=== PATIENT | female | born 1975 | race Caucasian/White ===

== ENCOUNTER 2017-10-20 11:46 | Inpatient (IN) | payer MEDICAID, SELFPAY ==
[2017-10-20] VITALS (9 sets, daily range): BP systolic 94–118; BP diastolic 56–84; PULSE 80–109; RESP 14–16; TEMP 36.4–37; O2SAT 96–100; BMI 19.0
--- NOTE | 2017-10-20 12:03 | CT_ITS ---
STUDY: CT PELVIS WITHOUT CONTRAST REASON FOR EXAM: Female, 42 years old. Septic wound overlying the right hip. RADIATION DOSAGE (If Supplied By Facility): CTDIvol = ( 18.05 ) mGy, DLP = ( 469.79 ) mGycm TECHNIQUE: Transaxial imaging of the pelvis was performed with oral contrast, and without intravenous administration of contrast material. Multiplanar coronal and sagittal images were reformatted. Individualized dose optimization techniques were used for this CT. COMPARISON: None. FINDINGS: There is a 4.3 cm x 1.5 cm soft tissue density overlying the greater trochanter of the proximal right femur. This extends to the cutaneous surface where there appears to be an ulceration. Lymph nodes are seen in the right inguinal region the largest measuring 1.2 cm. Normal urinary bladder. Bilateral tubal ligation. Residual food products are seen within the distal portion of the stomach. Normal visualized small intestine. Normal visualized colon. There is no pelvic fluid. There is no pelvic mass lesion or lymphadenopathy. There is diffuse atherosclerotic calcification of the pelvic arteries. Normal abdominal wall. Normal osseous structures. CT/Pelvis without IV Contrast IMPRESSION: 4.3 cm x 1.5 cm soft tissue density overlying the greater trochanter to proximal right femur with overlying cutaneous ulceration. Right inguinal lymph nodes. Electronically Signed: Jason Oquendo MD at 12:58 EDT Tel [phone], Service support ,
[2017-10-20 12:37] LABS: Absolute Lymphocyte Count 1.97 X10^3/ul (0.83-4.51); Absolute Neutrophil Count 3.3 X10^3/uL (2.0-7.7); Basophil# 0.01 X10^3/uL; Basophil% 0.2 % (0-1); Hematocrit 40.1 % (37-47); Hemoglobin 13.5 g/dl (12.0-15.0); Lymphocyte # 1.97 X10^3/ul (4.0); Lymphocyte % 34.9 % (19-41); Mean Corp Hgb Conc 33.7 g/gl (32-36); Mean Corpuscular Hgb 29.9 pg (27.0-32.0); Mean Corpuscular Volume 88.9 fL (81-99); Mean Platelet Vol. 11.4 fl (6.2-12.0); Monocyte# 0.38 X10^3/uL; Monocyte% 6.7 % (0-10); Neutrophil # 3.27 X10^3/uL (2.7-7.7); Platelet Count 170 K/mm3 (150-450); RBC Distribution Width CV 13.6 % (11.6-14.6); Red Blood Count 4.51 M/mm3 (4.2-5.4); White Blood Count 5.6 K/mm3 (4.4-11.0)
[2017-10-20 12:38] LABS: POSITIVE COUNT NO; POSITIVE DIFFERENTIAL NO; POSITIVE MORPHOLOGY NO
[2017-10-20 12:46] LABS: Anion Gap 7 (5-15); BUN 7 mg/dL (7-18); BUN/Creat Ratio 8.6 RATIO (10-20); Calcium,Total 8.7 mg/dL (8.5-10.1); Chloride 108 mmol/L (98-107); Creatinine, Serum 0.82 mg/dL (0.55-1.02); EST Glomerular Filtration Rate 82 mL/min (>60); Est Glom Filt Rate - Afr Amer 99 mL/min (>60); Estimated Creatinine Clearance 68.71 ml/min; Glucose 92 mg/dL (74-106); Potassium 4.5 mmol/L (3.5-5.1); Sodium Level 141 mmol/L (136-145)
--- NOTE | 2017-10-20 13:48 | DT_ITS ---
This patient was seen during an EMR downtime October 25, 2017 - November 01, 2017. This patient may have a combination of paper and electronic documentation or all paper documentation. All documentation is viewable within the e-chart portion of [facility] for each patient visit.
--- NOTE | 2017-10-20 13:55 | PCM.HP.STD ---
History of Present Illness Date of Admission: 10/20/17 Chief Complaint: Right hip wound. The patient is a 42 year old F presented to the emergency room because of right hip wound that she had since April,. According to the patient, she went to see her PCP a week ago and her PCP advised her to come to the emergency department for evaluation but she did not and waited until today to come to be evaluated. She complains of mild dull aching pain, intermittent at the right hip region that has been going on for a few weeks, 2-3 out of 10 in severity, not radiating, associated with subjective fever according to the patient and without aggravating or relieving factors. She does have a drainage coming out from her wound and it has a smell as well. Reportedly, patient has been nonambulatory and laying in her bed most of her time and she attributed that because she has chronic dizziness and lightheadedness. It is unclear if she has any chronic debilitating disease. In the emergency department, her vital signs were stable. Her routine blood work was unremarkable. CT scan pelvis without contrast revealed 4.3 cm x 1.5 cm soft tissue density overlying the greater trochanter to the proximal right femur. She is being admitted for infected right hip stage II decubitus ulcer and suspected underlying abscess. Past Medical History Allergies Penicillins Allergy (Verified 10/20/17 11:49) Unknown aspirin Adverse Reaction (Verified 10/20/17 11:49) Upset Stomach Home Medications: Ambulatory Orders Medication Instructions Recorded NK [NK] 05/23/17 Surgical History: - - section. 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 Dyspnea, Syncope Respiratory: Denies: Cough, Hemoptysis, Pleuritic Pain, Shortness of Breath, Sputum production, Wheezing Gastrointestinal: Denies: Abdominal Pain, Constipation, Diarrhea, Nausea, Vomiting Genitourinary: Denies: Dysuria, Frequency, Hematuria Musculoskeletal: Denies: Arm Pain, Back Pain, Foot Pain Skin: Denies: Dryness, Rash Neurological: Denies: Balance problems, Double vision, Change in Speech, Focal weakness, Headaches, Incoordination Psychiatric: Denies: Anxiety, Depression Endocrine: Denies: Change in Body Habitus, Polydipsia VTE Information - Inpt Only VTE Present on Admission: No VTE Mechan Device Prophylaxis: None VTE Pharm Prophylaxis ordered?: Yes - Physical Exam General: Alert, Oriented x3, Cooperative HEENT: EOMI Oral: Moist Mucosa, No Gingival or Mucosal Lesions/ Ulcerations Neck: Supple, No JVD, Negative Carotid Bruits, Trachea Midline, Thyroid Normal Size and Texture Lungs: Clear to auscultation, Normal air movement, No rhonchi, No wheeze, No rales Cardiovascular: Regular rate, Regular Rhythm, Normal S1, Normal S2, No murmurs Abdomen: Bowel Sounds Present, Soft, Non Tender, Non-Distended, No Hepato-splenomegaly Extremities: No clubbing, No cyanosis, No edema Skin: No rashes, Ulcer/ Wound, - - Right hip: Stage II decubitus ulcer measuring about 3 x 3 cm with drainage and minimal pus. Lymphatic: No Cervical, Supraclavicular, or Inguinal Adenopathy Neurological: Cranial nerves II-XII grossly intact, Neuro grossly intact Psych/Mental Status: Normal Affect, Appropriate, Alert and oriented to time, place, person, mood and affect Vital Signs Temp Pulse Resp BP Pulse Ox 98.6 F 109 H 16 118/84 H 98 10/20/17 11:47 10/20/17 11:47 10/20/17 11:47 10/20/17 11:47 10/20/17 11:47 Oxygen Delivery Method Room Air Weight: 107 lb 5.842 oz Body Mass Index (BMI) 19.0 Finger Stick Blood Glucose 144 Laboratory Tests Past 24 Hrs 10/20/17 10/20/17 10/20/17 12:24 12:24 13:31 WBC 5.6 RBC 4.51 Hgb 13.5 Hct 40.1 MCV 88.9 MCH 29.9 MCHC 33.7 RDW 13.6 RDW Differential 44.0 H Plt Count 170 MPV 11.4 Immature Gran % (Auto) 0.200 Neut % (Auto) 58.0 Lymph % (Auto) 34.9 [place] % (Auto) 6.7 Eos % (Auto) 0.0 Baso % (Auto) 0.2 Absolute Neuts (auto) 3.3 Absolute Lymphs (auto) 1.97 Total Counted Not Reportable Sodium 141 Potassium 4.5 Chloride 108 H Carbon Dioxide 26.0 Anion Gap 7 BUN 7 Creatinine 0.82 Estim Creat Clear Calc 68.71 Est GFR (MDRD) Af Amer 99 Est GFR (MDRD) Non-Af 82 BUN/Creatinine Ratio 8.6 L Glucose 92 Calcium 8.7 S.aureus Protein A PCR Pending MRSA (PCR) Pending Clinical Impression(s) from Imaging Studies Pelvis CT 10/20/17 12:03 IMPRESSION: 4.3 cm x 1.5 cm soft tissue density overlying the greater trochanter to proximal right femur with overlying cutaneous ulceration. Right inguinal lymph nodes. Electronically Signed: Jason Oquendo MD at 12:58 EDT Tel [phone], Service support , Assessment/Plan This is a 42 years old female patient presented to the emergency room because of right hip wound check that look infected and CT scan pelvis revealed probable overlying abscess. #1 right hip stage II decubitus ulcer/suspected underlying abscess: She has open ulcer on the lateral aspect of the posterior hip measuring about 3 x 3 cm with drainage and minimal pus and surrounding erythema. Vital signs are stable, afebrile. CT scan pelvis reviewed. Blood and wound culture sent, received 1 dose of IV Levaquin. Plan: Admit to MedSurg floor, start IV vancomycin, MRSA screen, C-reactive protein, ESR, plastic surgery consult, IV fluids, Tylenol as needed, Zofran as needed, PT OT evaluation and treatment. #2 physical debility: Patient is nonambulatory most of her time, stated that she can do basic stuff sometimes. It is not clear why she is not fully ambulatory although she is still young. She mentioned that she has chronic dizziness. Plan for PT OT evaluation and treatment. 3 DVT prophylaxis: Subcu Lovenox. This note was generated with J[employer] software. It may contain incorrect words, spelling, and punctuation that were not noted in checking the note before signing. Code Visit Inpatient E&M: 77710 Init Hosp L3
--- NOTE | 2017-10-20 13:58 | HP.PCM_ITS ---
History of Present Illness Date of Admission: 10/20/17 Chief Complaint: Right hip wound. The patient is a 42 year old F presented to the emergency room because of right hip wound that she had since April,. According to the patient, she went to see her PCP a week ago and her PCP advised her to come to the emergency department for evaluation but she did not and waited until today to come to be evaluated. She complains of mild dull aching pain, intermittent at the right hip region that has been going on for a few weeks, 2-3 out of 10 in severity, not radiating, associated with subjective fever according to the patient and without aggravating or relieving factors. She does have a drainage coming out from her wound and it has a smell as well. Reportedly, patient has been nonambulatory and laying in her bed most of her time and she attributed that because she has chronic dizziness and lightheadedness. It is unclear if she has any chronic debilitating disease. In the emergency department, her vital signs were stable. Her routine blood work was unremarkable. CT scan pelvis without contrast revealed 4.3 cm x 1.5 cm soft tissue density overlying the greater trochanter to the proximal right femur. She is being admitted for infected right hip stage II decubitus ulcer and suspected underlying abscess. Past Medical History Allergies Penicillins Allergy (Verified 10/20/17 11:49) Unknown aspirin Adverse Reaction (Verified 10/20/17 11:49) Upset Stomach Home Medications: Ambulatory Orders Medication Instructions Recorded NK [NK] 05/23/17 Surgical History: - - section. 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 Dyspnea, Syncope Respiratory: Denies: Cough, Hemoptysis, Pleuritic Pain, Shortness of Breath, Sputum production, Wheezing Gastrointestinal: Denies: Abdominal Pain, Constipation, Diarrhea, Nausea, Vomiting Genitourinary: Denies: Dysuria, Frequency, Hematuria Musculoskeletal: Denies: Arm Pain, Back Pain, Foot Pain Skin: Denies: Dryness, Rash Neurological: Denies: Balance problems, Double vision, Change in Speech, Focal weakness, Headaches, Incoordination Psychiatric: Denies: Anxiety, Depression Endocrine: Denies: Change in Body Habitus, Polydipsia VTE Information - Inpt Only VTE Present on Admission: No VTE Mechan Device Prophylaxis: None VTE Pharm Prophylaxis ordered?: Yes - Physical Exam General: Alert, Oriented x3, Cooperative HEENT: EOMI Oral: Moist Mucosa, No Gingival or Mucosal Lesions/ Ulcerations Neck: Supple, No JVD, Negative Carotid Bruits, Trachea Midline, Thyroid Normal Size and Texture Lungs: Clear to auscultation, Normal air movement, No rhonchi, No wheeze, No rales Cardiovascular: Regular rate, Regular Rhythm, Normal S1, Normal S2, No murmurs Abdomen: Bowel Sounds Present, Soft, Non Tender, Non-Distended, No Hepato- splenomegaly Extremities: No clubbing, No cyanosis, No edema Skin: No rashes, Ulcer/ Wound, - - Right hip: Stage II decubitus ulcer measuring about 3 x 3 cm with drainage and minimal pus. Lymphatic: No Cervical, Supraclavicular, or Inguinal Adenopathy Neurological: Cranial nerves II-XII grossly intact, Neuro grossly intact Psych/Mental Status: Normal Affect, Appropriate, Alert and oriented to time, place, person, mood and affect Vital Signs Temp Pulse Resp BP Pulse Ox 98.6 F 109 H 16 118/84 H 98 10/20/17 11:47 10/20/17 11:47 10/20/17 11:47 10/20/17 11:47 10/20/17 11:47 Oxygen Delivery Method Room Air Weight: 107 lb 5.842 oz Body Mass Index (BMI) 19.0 Finger Stick Blood Glucose 144 Laboratory Tests Past 24 Hrs 10/20/17 10/20/17 10/20/17 12:24 12:24 13:31 WBC 5.6 RBC 4.51 Hgb 13.5 Hct 40.1 MCV 88.9 MCH 29.9 MCHC 33.7 RDW 13.6 RDW Differential 44.0 H Plt Count 170 MPV 11.4 Immature Gran % (Auto) 0.200 Neut % (Auto) 58.0 Lymph % (Auto) 34.9 [place] % (Auto) 6.7 Eos % (Auto) 0.0 Baso % (Auto) 0.2 Absolute Neuts (auto) 3.3 Absolute Lymphs (auto) 1.97 Total Counted Not Reportable Sodium 141 Potassium 4.5 Chloride 108 H Carbon Dioxide 26.0 Anion Gap 7 BUN 7 Creatinine 0.82 Estim Creat Clear Calc 68.71 Est GFR (MDRD) Af Amer 99 Est GFR (MDRD) Non-Af 82 BUN/Creatinine Ratio 8.6 L Glucose 92 Calcium 8.7 S.aureus Protein A PCR Pending MRSA (PCR) Pending Clinical Impression(s) from Imaging Studies Pelvis CT 10/20/17 12:03 IMPRESSION: 4.3 cm x 1.5 cm soft tissue density overlying the greater trochanter to proximal right femur with overlying cutaneous ulceration. Right inguinal lymph nodes. Electronically Signed: Jason Oquendo MD at 12:58 EDT Tel [phone], Service support , Assessment/Plan This is a 42 years old female patient presented to the emergency room because of right hip wound check that look infected and CT scan pelvis revealed probable overlying abscess. #1 right hip stage II decubitus ulcer/suspected underlying abscess: She has open ulcer on the lateral aspect of the posterior hip measuring about 3 x 3 cm with drainage and minimal pus and surrounding erythema. Vital signs are stable , afebrile. CT scan pelvis reviewed. Blood and wound culture sent, received 1 dose of IV Levaquin. Plan: Admit to MedSurg floor, start IV vancomycin, MRSA screen, C-reactive protein, ESR, plastic surgery consult, IV fluids, Tylenol as needed, Zofran as needed, PT OT evaluation and treatment. #2 physical debility: Patient is nonambulatory most of her time, stated that she can do basic stuff sometimes. It is not clear why she is not fully ambulatory although she is still young. She mentioned that she has chronic dizziness. Plan for PT OT evaluation and treatment. 3 DVT prophylaxis: Subcu Lovenox. This note was generated with [email or web address] software. It may contain incorrect words, spelling, and punctuation that were not noted in checking the note before signing. Code Visit Inpatient E&M: 05612 Init Hosp L3
[2017-10-20 14:02] LABS: M R Staph aureus DNA By PCR Negative (Negative); Probe Check PASS; Specimen Processing Control PASS; Staph aureus DNA By PCR POSITIVE (Negative)
[2017-10-20] MEDS: levoFLOXacin IV 750 MG/150 ML BAG 100 MG IV (14:02)
--- NOTE | 2017-10-20 14:17 | ED.VISSUMM ---
- ER Visit Summary Date of Service: 10/20/17 Chief Complaint: [Wound check right hip] History of Present Illness: The patient is a 42 F [presents to the emergency department with complaint of a wound to the right hip that she has had for the last 6 months. Patient states that she was admitted to a shelter in July and since that time patient has had a wound VAC to the right hip. Patient was seen by her primary care physician a week ago there was concern about infection to the right hip wound which is believed from pressure type ulceration from patient laying on it. Patient was advised to come to the emergency department a week ago but patient did not want to come in until finally today she decided she wanted to have it evaluated again. Patient denies any fever. Patient does have drainage from it and follow odor.] Physical Examination: [HEDION-PERRLASAUL. Cranial nerves II through XII grossly intact. TMs clear. Mucous membranes moist. No adenopathy. Cardiovascular-regular rate and rhythm without murmur or ectopy Lungs-clear to auscultation, chest wall stable without crepitus or subcu emphysema Abdomen-normoactive bowel sounds, soft, nontender, no rebound or rigidity, no peritoneal signs. Extremities-intact ?4, normal range of motion, normal pulses, atraumatic]. Right hip-patient does have a ulcerated lesion measuring approximately 4 cm in diameter over the right greater trochanter of the hip with surrounding erythema and edema. Patient does have drainage noted that is foul-smelling. She is neurovascular intact distally. Test Results: [CBC with differential obtained was normal. Chemistries unremarkable. Wound culture was ordered as well as a MRSA culture. Patient was started on Levaquin as she has been allergic. 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 It may contain incorrect words, spelling, and punctuation that were not noted in review of the chart prior to signing ED Disposition - Plan for ED Patient: Chief Complaint: Wound Check
--- NOTE | 2017-10-20 14:20 | ED.DCSUM_ITS ---
- ER Visit Summary Date of Service: 10/20/17 Chief Complaint: [Wound check right hip] History of Present Illness: The patient is a 42 F [presents to the emergency department with complaint of a wound to the right hip that she has had for the last 6 months. Patient states that she was admitted to a care home in July and since that time patient has had a wound VAC to the right hip. Patient was seen by her primary care physician a week ago there was concern about infection to the right hip wound which is believed from pressure type ulceration from patient laying on it. Patient was advised to come to the emergency department a week ago but patient did not want to come in until finally today she decided she wanted to have it evaluated again. Patient denies any fever. Patient does have drainage from it and follow odor.] Physical Examination: [HEDION-PERRLASAUL. Cranial nerves II through XII grossly intact. TMs clear. Mucous membranes moist. No adenopathy. Cardiovascular-regular rate and rhythm without murmur or ectopy Lungs-clear to auscultation, chest wall stable without crepitus or subcu emphysema Abdomen-normoactive bowel sounds, soft, nontender, no rebound or rigidity, no peritoneal signs. Extremities-intact ?4, normal range of motion, normal pulses, atraumatic]. Right hip-patient does have a ulcerated lesion measuring approximately 4 cm in diameter over the right greater trochanter of the hip with surrounding erythema and edema. Patient does have drainage noted that is foul-smelling. She is neurovascular intact distally. Test Results: [CBC with differential obtained was normal. Chemistries unremarkable. Wound culture was ordered as well as a MRSA culture. Patient was started on Levaquin as she has been allergic. 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 It may contain incorrect words, spelling, and punctuation that were not noted in review of the chart prior to signing ED Disposition - Plan for ED Patient: Chief Complaint: Wound Check
--- NOTE | 2017-10-20 14:40 | NURSING ---
SPOKE WITH [facility]ERK[facility] AT [facility] REGARDING BED ASSIGNMENT. STATES STILL WAITING ON A BED ASSIGNMENT IT MAY BE A WHILE
[2017-10-20] MEDS: 0.9% Normal Saline 1,000 ML 100 ML IV (15:00)
--- NOTE | 2017-10-20 15:31 | NURSING ---
wound photo: right trochanter
--- NOTE | 2017-10-20 16:33 | PCM.RX.CS ---
Consult Pharmacy has been consulted to manage selected antiobiotic: Vancomycin Type of Consult: New start Suspected Infection: Skin/Soft tissue Prior Doses of Antibiotics Received/Current Regimen: 0 Labs: Sodium 141 mmol/L (136-145) 10/20/17 12:24 Potassium 4.5 mmol/L (3.5-5.1) 10/20/17 12:24 Chloride 108 mmol/L (98-107) H 10/20/17 12:24 Carbon Dioxide 26.0 mmol/L (21.0-32.0) 10/20/17 12:24 Anion Gap 7 (5-15) 10/20/17 12:24 BUN 7 mg/dL (7-18) 10/20/17 12:24 Creatinine 0.82 mg/dL (0.55-1.02) 10/20/17 12:24 Est GFR (MDRD) Af Amer 99 mL/min (>60) 10/20/17 12:24 Est GFR (MDRD) Non-Af 82 mL/min (>60) 10/20/17 12:24 BUN/Creatinine Ratio 8.6 RATIO (10-20) L 10/20/17 12:24 Glucose 92 mg/dL (74-106) 10/20/17 12:24 Weight used for dosin.76 kg Estimated Creatinine Clearance: 0.82 Goal Trough: 10-15 mcg/mL - 750MG INITIAL DOSE THEN 500MG Q12H, TROUGH PRIOR TO 4TH DOSE Pharmacy Plan for Drug Dosing: Pharmacy Service will continue to monitor and adjust dosing as required.
[2017-10-20 17:14] LABS: CRP < 2.90 mg/L (0.0-3.0)
[2017-10-20 17:47] LABS: Erythrocyte Sedimentation Rate 8 mm/hr (0-20)
--- NOTE | 2017-10-20 22:49 | PCM.CONS.GEN ---
Reason for Consult Date of Consultation: 10/20/17 Reason for Consultation: Right trochanteric pressure sore, at least Stage III. REFERRING PHYSICIAN: Dr. Luther. CAR BUILDER: Dr. Keller. History of Present Illness: The patient is a 42 year old F who was admitted for a right trochanteric pressure sore that developed in April 2017. She has a history of IV drug use and she had passed out back in April. By the time she was found, the pressure sore had developed. She was recently had an ECF and NPWT device was used for wound care. She was discharged from the ECF as she was admitted to the hospital. The patient is ambulatory. She denies any fever. WBC on admission was 5.6. CT scan pelvis was done which showed a 4.3 cm x 1.5 cm soft tissue density overlying the greater trochanter to the proximal right femur. There is concern of extension of the pressure sore to the hip joint with possible underlying infection. I was asked to evaluate this patient for surgical options for treatment. 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 Medical History: Medical History (Last Updated 10/20/17 @ 22:52 by Tylor Keller MD) Intravenous drug user F19.90 Allergies Penicillins Allergy (Verified 10/20/17 11:49) Unknown aspirin Adverse Reaction (Verified 10/20/17 11:49) Upset Stomach Current Medications Acetaminophen (Tylenol) 650 mg PO Q6H PRN Enoxaparin Sodium (Lovenox) 40 mg SC DAILY@0600 [facility] Vancomycin HCl () 500 mg in 100 mls @ 100 mls/hr IV Q12H [facility] Magnesium Hydroxide (Milk Of Magnesia) 30 ml PO DAILY PRN Nutritional Formula (Lactose Free) (Ensure Enlive) 120 ml PO 4X/DAY [facility] Ondansetron HCl (Zofran) 4 mg IV Q6H PRN Zolpidem Tartrate (Ambien (Generic)) 5 mg PO QHS PRN Home Medications: Ambulatory Orders Medication Instructions Recorded NK [NK] 05/23/17 Surgical History: - - section. Bilateral breast augmentation. 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 - *Family History Maternal History Items: No pertinent history Paternal History Items: No pertinent history Review of Systems Comment: Constitutional: Denies: Anorexia, Chills, Fever, Weakness. Eyes: Denies: Blurred vision, Double vision, Drainage, Pain, Redness. HEENT: Denies: Difficulty Hearing, Ear Pain, Eye Pain, Nasal Congestion, Sore Throat. Cardiovascular: Denies: Chest Pain, Chest Pressure, Chest Tightness, Edema, Palpitations, Paroxysmal Noc. Dyspnea, Syncope. Respiratory: Denies: Cough, Hemoptysis, Pleuritic Pain, Shortness of Breath, Sputum production, Wheezing. Gastrointestinal: Denies: Abdominal Pain, Constipation, Diarrhea, Nausea, Vomiting. Genitourinary: Denies: Dysuria, Frequency, Hematuria. Musculoskeletal: Denies: Arm Pain, Back Pain, Foot Pain. Skin: Denies: Dryness, Rash. Neurological: Denies: Balance problems, Double vision, Change in Speech, Focal weakness, Headaches, Incoordination. Psychiatric: Denies: Anxiety, Depression. Endocrine: Denies: Change in Body Habitus, Polydipsia - Physical Exam General: Alert, Oriented x3, Cooperative HEENT: EOMI PERRL Oral: Moist Mucosa. Neck: Supple, Nontender. No cervical adenopathy. Lungs: Clear to auscultation. Cardiovascular: Regular rate, Regular Rhythm. Abdomen: Soft and nondistended. Extremities: No clubbing, No cyanosis, No edema Skin: No rashes, Ulcer/ Wound, - - Right trochanteric pressure sore, at least Stage III. Into subcutaneous tissue. Bone palpable but not exposed. Some periwound redness. Measures 3.5 x 3 x 1 cm. Some exudative drainage. Minimal pus seen. Lymphatic: No Cervical, Supraclavicular, or Inguinal Adenopathy Neurological: Cranial nerves II-XII grossly intact. Psych/Mental Status: Normal Affect, Appropriate, Alert and oriented to time, place, person, mood and affect Vital Signs Temp Pulse Resp BP Pulse Ox 97.6 F L 90 16 94/56 L 97 10/20/17 22:10 10/20/17 22:10 10/20/17 22:10 10/20/17 22:10 10/20/17 22:10 Oxygen Delivery Method Room Air Weight: 107 lb 8 oz Body Mass Index (BMI) 19.0 Intake and Output for Last 24 Hours 10/18/17 10/19/17 10/20/17 23:59 23:59 23:59 Intake Total 850 / 850 Balance 850 / 850 Assessment/Plan 1. Right trochanteric pressure sore, at least Stage III. 2. History of IV drug use. 3. Smoker. CT Pelvis reviewed. Continue IV Vancomycin. Doubt the pressure sore will not heal without operative debridement. Because she is ambulatory, the pressure sore has a good chance of healing with aggressive wound care, operative debridement, and antibiotics, and maximizing nutrition. Recommend operative excision of this right trochanteric pressure sore and if it extends to bone, a partial ostectomy will be done to evaluate for osteomyelitis. The pressure sore will be made bigger in order to help with the healing process. Patient is aware that the pressure sore will be made larger and voices understanding and wishes to proceed. Postop wound care will be with the VAC. If the cultures are positive, then antibiotic modification may be necessary. After discharge, will followup at the [facility]. Anticipate increased metabolic demands from the pressure sore. Will check a Prealbumin and encourage nutritional supplementation with protein to help the healing process. If there is a plateau in the healing process, can proceed with delayed closure with a fasciocutaneous flap or muscle flap. If a flap is done, then bedrest will be necessary for 6 weeks. Surgery will be done tomorrow under general anesthesia. Patient was informed of the risks and complications of the procedure including alternatives to surgery. These were discussed with her personally. She voices understanding and wishes to proceed. Encouraged the patient to stop smoking as it may have deleterious effects on wound healing. Code Visit Inpatient E&M: 64492 Init Hosp L2 - ICD-10 - L89.213, F19.90, F17.200
--- NOTE | 2017-10-20 22:53 | CON.PCM_ITS ---
Reason for Consult Date of Consultation: 10/20/17 Reason for Consultation: Right trochanteric pressure sore, at least Stage III. REFERRING PHYSICIAN: Dr. Luther. TRANSPORTATION OPERATIONS MANAGER: Dr. Keller. History of Present Illness: The patient is a 42 year old F who was admitted for a right trochanteric pressure sore that developed in April 2017. She has a history of IV drug use and she had passed out back in April. By the time she was found, the pressure sore had developed. She was recently had an ECF and NPWT device was used for wound care. She was discharged from the ECF as she was admitted to the hospital. The patient is ambulatory. She denies any fever. WBC on admission was 5.6. CT scan pelvis was done which showed a 4.3 cm x 1.5 cm soft tissue density overlying the greater trochanter to the proximal right femur. There is concern of extension of the pressure sore to the hip joint with possible underlying infection. I was asked to evaluate this patient for surgical options for treatment. 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 Medical History: Medical History (Last Updated 10/20/17 @ 22:52 by Tylor Keller MD) Intravenous drug user F19.90 Allergies Penicillins Allergy (Verified 10/20/17 11:49) Unknown aspirin Adverse Reaction (Verified 10/20/17 11:49) Upset Stomach Current Medications Acetaminophen (Tylenol) 650 mg PO Q6H PRN Enoxaparin Sodium (Lovenox) 40 mg SC DAILY@0600 [facility] Vancomycin HCl () 500 mg in 100 mls @ 100 mls/hr IV Q12H [facility] Magnesium Hydroxide (Milk Of Magnesia) 30 ml PO DAILY PRN Nutritional Formula (Lactose Free) (Ensure Enlive) 120 ml PO 4X/DAY [facility] Ondansetron HCl (Zofran) 4 mg IV Q6H PRN Zolpidem Tartrate (Ambien (Generic)) 5 mg PO QHS PRN Home Medications: Ambulatory Orders Medication Instructions Recorded NK [NK] 05/23/17 Surgical History: - - section. Bilateral breast augmentation. Psychiatric History: No pertinent psych hx SHIP'S ENGINEER History: No pertinent SHIP'S ENGINEER history Lives: Spouse/ Significant Other Smoking Status: Current every day smoker Tobacco Use: Cigarettes Alcohol: None Drugs: None - at present., - - history of IV drug use. - *Family History Maternal History Items: No pertinent history Paternal History Items: No pertinent history Review of Systems Comment: Constitutional: Denies: Anorexia, Chills, Fever, Weakness. Eyes: Denies: Blurred vision, Double vision, Drainage, Pain, Redness. HEENT: Denies: Difficulty Hearing, Ear Pain, Eye Pain, Nasal Congestion, Sore Throat. Cardiovascular: Denies: Chest Pain, Chest Pressure, Chest Tightness, Edema, Palpitations, Paroxysmal Noc. Dyspnea, Syncope. Respiratory: Denies: Cough, Hemoptysis, Pleuritic Pain, Shortness of Breath, Sputum production, Wheezing. Gastrointestinal: Denies: Abdominal Pain, Constipation, Diarrhea, Nausea, Vomiting. Genitourinary: Denies: Dysuria, Frequency, Hematuria. Musculoskeletal: Denies: Arm Pain, Back Pain, Foot Pain. Skin: Denies: Dryness , Rash. Neurological: Denies: Balance problems, Double vision, Change in Speech , Focal weakness, Headaches, Incoordination. Psychiatric: Denies: Anxiety, Depression. Endocrine: Denies: Change in Body Habitus, Polydipsia - Physical Exam General: Alert, Oriented x3, Cooperative HEENT: EOMI PERRL Oral: Moist Mucosa. Neck: Supple, Nontender. No cervical adenopathy. Lungs: Clear to auscultation. Cardiovascular: Regular rate, Regular Rhythm. Abdomen: Soft and nondistended. Extremities: No clubbing, No cyanosis, No edema Skin: No rashes, Ulcer/ Wound, - - Right trochanteric pressure sore, at least Stage III. Into subcutaneous tissue. Bone palpable but not exposed. Some periwound redness. Measures 3.5 x 3 x 1 cm. Some exudative drainage. Minimal pus seen. Lymphatic: No Cervical, Supraclavicular, or Inguinal Adenopathy Neurological: Cranial nerves II-XII grossly intact. Psych/Mental Status: Normal Affect, Appropriate, Alert and oriented to time, place, person, mood and affect Vital Signs Temp Pulse Resp BP Pulse Ox 97.6 F L 90 16 94/56 L 97 10/20/17 22:10 10/20/17 22:10 10/20/17 22:10 10/20/17 22:10 10/20/17 22:10 Oxygen Delivery Method Room Air Weight: 107 lb 8 oz Body Mass Index (BMI) 19.0 Intake and Output for Last 24 Hours 10/18/17 10/19/17 10/20/17 23:59 23:59 23:59 Intake Total 850 / 850 Balance 850 / 850 Assessment/Plan 1. Right trochanteric pressure sore, at least Stage III. 2. History of IV drug use. 3. Smoker. CT Pelvis reviewed. Continue IV Vancomycin. Doubt the pressure sore will not heal without operative debridement. Because she is ambulatory, the pressure sore has a good chance of healing with aggressive wound care, operative debridement, and antibiotics, and maximizing nutrition. Recommend operative excision of this right trochanteric pressure sore and if it extends to bone, a partial ostectomy will be done to evaluate for osteomyelitis. The pressure sore will be made bigger in order to help with the healing process. Patient is aware that the pressure sore will be made larger and voices understanding and wishes to proceed. Postop wound care will be with the VAC. If the cultures are positive, then antibiotic modification may be necessary. After discharge, will followup at the [facility]ound Center. Anticipate increased metabolic demands from the pressure sore. Will check a Prealbumin and encourage nutritional supplementation with protein to help the healing process. If there is a plateau in the healing process, can proceed with delayed closure with a fasciocutaneous flap or muscle flap. If a flap is done, then bedrest will be necessary for 6 weeks. Surgery will be done tomorrow under general anesthesia. Patient was informed of the risks and complications of the procedure including alternatives to surgery. These were discussed with her personally. She voices understanding and wishes to proceed. Encouraged the patient to stop smoking as it may have deleterious effects on wound healing. Code Visit Inpatient E&M: 08807 Init Hosp L2 - ICD-10 - L89.213, F19.90, F17.200
[2017-10-21] VITALS (17 sets, daily range): BP systolic 80–106; BP diastolic 47–73; PULSE 55–103; RESP 16–18; TEMP 36.6–37.4; O2SAT 98–100; BMI 19.0
[2017-10-21 06:32] LABS: Absolute Lymphocyte Count 1.55 X10^3/ul (0.83-4.51); Absolute Neutrophil Count 2.7 X10^3/uL (2.0-7.7); Basophil# 0.01 X10^3/uL; Basophil% 0.2 % (0-1); Hematocrit 38.9 % (37-47); Hemoglobin 12.5 g/dl (12.0-15.0); Lymphocyte # 1.55 X10^3/ul (4.0); Lymphocyte % 34.4 % (19-41); Mean Corp Hgb Conc 32.1 g/gl (32-36); Mean Corpuscular Hgb 28.2 pg (27.0-32.0); Mean Corpuscular Volume 87.8 fL (81-99); Mean Platelet Vol. 11.6 fl (6.2-12.0); Monocyte% 6.7 % (0-10); Neutrophil # 2.65 X10^3/uL (2.7-7.7); Neutrophil % 58.7 % (47-70); Platelet Count 161 K/mm3 (150-450); RBC Distribution Width CV 13.5 % (11.6-14.6); RBC Distribution Width SD 43.6 fl (35.1-43.9); Red Blood Count 4.43 M/mm3 (4.2-5.4); White Blood Count 4.5 K/mm3 (4.4-11.0)
[2017-10-21 06:36] LABS: POSITIVE COUNT NO; POSITIVE DIFFERENTIAL NO; POSITIVE MORPHOLOGY NO
[2017-10-21 07:52] LABS: Internal QC Validated? YES +Cl - CLEAR BKGD
[2017-10-21 07:53] LABS: Pregnancy, Urine Negative Negative
--- NOTE | 2017-10-21 08:00 | RAD_ITS ---
STUDY: X-RAY CHEST REASON FOR EXAM: Female, 42 years old. Preoperative evaluation. TECHNIQUE: Single AP portable view of the chest. COMPARISON: Comparison is made with prior study dated May 23, 2017. FINDINGS: EKG electrodes are seen. Hyperinflation. The lungs are clear. There is no demonstrated pleural abnormality. Normal size heart. Normal mediastinum and felicia. Normal visualized pulmonary arteries. Normal visualized aortic arch and descending thoracic aorta. Normal visualized thoracic spine. Normal visualized ribs, clavicles, and shoulders. There is no demonstrated abnormality of the visualized soft tissue structures of the upper abdomen. RAD/Chest 1 View IMPRESSION: Hyperinflation. Electronically Signed: Jason Oquendo MD at 8:24 EDT Tel [phone], Service support ,
[2017-10-21 08:19] LABS: Amphetamine Urine VISTA NEGATIVE (<1000 ng/mL); Barbiturate Urine VISTA NEGATIVE (< 200 ng/mL); Benzodiazepine Urine VISTA NEGATIVE (< 200 ng/mL); Cocaine Urine VISTA NEGATIVE (< 300 ng/mL); Ecstacy Urine VISTA NEGATIVE (< 500 ng/mL); Methadone Urine VISTA NEGATIVE (< 300 ng/mL); PCP Urine VISTA NEGATIVE (< 25 ng/mL); THC Urine VISTA NEGATIVE (< 50 ng/mL); Vista UDS pH Range 5
--- NOTE | 2017-10-21 09:12 | PCM.PN.HOSP ---
Subjective: Again states that she has had the wound since sunburn just has not healed properly. Vitals/I&O's: Vital Signs Temp Pulse Resp BP Pulse Ox 36.6 C 78 16 96/54 L 98 10/21/17 04:23 10/21/17 06:17 10/21/17 04:23 10/21/17 04:23 10/21/17 04:23 Oxygen Delivery Method Room Air Weight: 48.761 kg Body Mass Index (BMI) 19.0 Intake and Output for Last 24 Hours 10/19/17 10/20/17 10/21/17 23:59 23:59 23:59 Intake Total 850 / 850 Balance 850 / 850 General: Alert, Cooperative, - - Appears older than stated age. Cachectic. HEENT: Atraumatic, Normocephalic Neck: No Nodes, Thyroid Normal Size and Texture Lungs: Clear to auscultation, Normal air movement, No rhonchi, No wheeze Cardiovascular: Regular rate, Regular Rhythm, Normal S1, Normal S2, No murmurs Abdomen: Bowel Sounds Present, Soft, Non Tender, Non-Distended, No Hepato-splenomegaly Extremities: No edema, No Calf Tenderness Skin: - - Stage II-III decubitus wounds on the right hip. No surrounding erythema. And has dramatic skin changes of the right upper extremity. Appears at home it is almost like a burn that she had. Musculoskeletal: Cachexia, Muscle Wasting Psych/Mental Status: Appropriate, Flat Affect Laboratory Results 10/21/17 05:35: WBC 4.5, RBC 4.43, Hgb 12.5, Hct 38.9, MCV 87.8, MCH 28.2, MCHC 32.1, RDW 13.5, RDW Differential 43.6, Plt Count 161, MPV 11.6, Immature Gran % (Auto) 0.000, Neut % (Auto) 58.7, Lymph % (Auto) 34.4, Adams % (Auto) 6.7, Eos % (Auto) 0.0, Baso % (Auto) 0.2, Absolute Neuts (auto) 2.7, Absolute Lymphs (auto) 1.55, Total Counted Not Reportable 10/21/17 07:30: Urine Opiates Screen POSITIVE H, Urine Methadone Screen NEGATIVE, Ur Barbiturates Screen NEGATIVE, Ur Phencyclidine Scrn NEGATIVE, Ur Amphetamines Screen NEGATIVE, U Methamphetamin-MDMA NEGATIVE, U Benzodiazepines Scrn NEGATIVE, Urine Cocaine Screen NEGATIVE, U Cannabinoids Screen NEGATIVE, Ur Drug Screen Comment 10/21/17 07:30: Urine Test Negative Current Medications Acetaminophen (Tylenol) 650 mg PO Q6H PRN PRN PRN Reason: Fever, headache, pain Enoxaparin Sodium (Lovenox) 40 mg SC DAILY@0600 ON LICENSE OF [facility] Last Admin: 10/21/17 05:24 Dose: Not Given Sodium Chloride () 250 mls @ 15 mls/hr IV .[id number] PRN PRN Reason: SALINE FLUSH Vancomycin HCl () 500 mg in 100 mls @ 100 mls/hr IV Q12H ON LICENSE OF [facility] Last Admin: 10/21/17 04:18 Dose: 100 mls/hr Magnesium Hydroxide (Milk Of Magnesia) 30 ml PO DAILY PRN PRN PRN Reason: Constipation Nutritional Formula (Lactose Free) (Ensure Enlive) 120 ml PO 4X/DAY ON LICENSE OF [facility] Last Admin: 10/20/17 22:13 Dose: 120 ml Ondansetron HCl (Zofran) 4 mg IV Q6H PRN PRN PRN Reason: NAUSEA/VOMITING Sodium Chloride () 5 - 30 ml IV UD PRN PRN Reason: SALINE FLUSH Zolpidem Tartrate (Ambien (Generic)) 5 mg PO QHS PRN PRN PRN Reason: INSOMNIA Medical Necessity - Tobacco Use Smoking Status: Current every day smoker Tobacco Use: Cigarettes Assessment/Plan 1. 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 Patient on antibiotics vancomycin Not convinced that this is actually infectious Patient go to the OR for further debridement of the wound today at 3 PM. 2. Suspected protein malnutrition Prealbumin Consult nutrition Start supplements after surgery to augment her nutritional status to help with healing of her wound. 3. DVT prophylaxis with Lovenox Code Visit Inpatient E&M: 22803 Subs Hosp L2
--- NOTE | 2017-10-21 09:20 | PN_ITS ---
Subjective: Again states that she has had the wound since sunburn just has not healed properly. Vitals/I&O's: Vital Signs Temp Pulse Resp BP Pulse Ox 36.6 C 78 16 96/54 L 98 10/21/17 04:23 10/21/17 06:17 10/21/17 04:23 10/21/17 04:23 10/21/17 04:23 Oxygen Delivery Method Room Air Weight: 48.761 kg Body Mass Index (BMI) 19.0 Intake and Output for Last 24 Hours 10/19/17 10/20/17 10/21/17 23:59 23:59 23:59 Intake Total 850 / 850 Balance 850 / 850 General: Alert, Cooperative, - - Appears older than stated age. Cachectic. HEENT: Atraumatic, Normocephalic Neck: No Nodes, Thyroid Normal Size and Texture Lungs: Clear to auscultation, Normal air movement, No rhonchi, No wheeze Cardiovascular: Regular rate, Regular Rhythm, Normal S1, Normal S2, No murmurs Abdomen: Bowel Sounds Present, Soft, Non Tender, Non-Distended, No Hepato- splenomegaly Extremities: No edema, No Calf Tenderness Skin: - - Stage II-III decubitus wounds on the right hip. No surrounding erythema. And has dramatic skin changes of the right upper extremity. Appears at home it is almost like a burn that she had. Musculoskeletal: Cachexia, Muscle Wasting Psych/Mental Status: Appropriate, Flat Affect Laboratory Results 10/21/17 05:35: WBC 4.5, RBC 4.43, Hgb 12.5, Hct 38.9, MCV 87.8, MCH 28.2, MCHC 32.1, RDW 13.5, RDW Differential 43.6, Plt Count 161, MPV 11.6, Immature Gran % (Auto) 0.000, Neut % (Auto) 58.7, Lymph % (Auto) 34.4, Logan % (Auto) 6.7, Eos % (Auto) 0.0, Baso % (Auto) 0.2, Absolute Neuts (auto) 2.7, Absolute Lymphs (auto ) 1.55, Total Counted Not Reportable 10/21/17 07:30: Urine Opiates Screen POSITIVE H, Urine Methadone Screen NEGATIVE , Ur Barbiturates Screen NEGATIVE, Ur Phencyclidine Scrn NEGATIVE, Ur Amphetamines Screen NEGATIVE, U Methamphetamin-MDMA NEGATIVE, U Benzodiazepines Scrn NEGATIVE, Urine Cocaine Screen NEGATIVE, U Cannabinoids Screen NEGATIVE, Ur Drug Screen Comment 10/21/17 07:30: Urine Test Negative Current Medications Acetaminophen (Tylenol) 650 mg PO Q6H PRN PRN PRN Reason: Fever, headache, pain Enoxaparin Sodium (Lovenox) 40 mg SC DAILY@0600 [facility] Last Admin: 10/21/17 05:24 Dose: Not Given Sodium Chloride () 250 mls @ 15 mls/hr IV .[id number] PRN PRN Reason: SALINE FLUSH Vancomycin HCl () 500 mg in 100 mls @ 100 mls/hr IV Q12H [facility] Last Admin: 10/21/17 04:18 Dose: 100 mls/hr Magnesium Hydroxide (Milk Of Magnesia) 30 ml PO DAILY PRN PRN PRN Reason: Constipation Nutritional Formula (Lactose Free) (Ensure Enlive) 120 ml PO 4X/DAY [facility] Last Admin: 10/20/17 22:13 Dose: 120 ml Ondansetron HCl (Zofran) 4 mg IV Q6H PRN PRN PRN Reason: NAUSEA/VOMITING Sodium Chloride () 5 - 30 ml IV UD PRN PRN Reason: SALINE FLUSH Zolpidem Tartrate (Ambien (Generic)) 5 mg PO QHS PRN PRN PRN Reason: INSOMNIA Medical Necessity - Tobacco Use Smoking Status: Current every day smoker Tobacco Use: Cigarettes Assessment/Plan 1. 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 * Patient on antibiotics vancomycin * Not convinced that this is actually infectious * Patient go to the OR for further debridement of the wound today at 3 PM. 2. Suspected protein malnutrition * Prealbumin * Consult nutrition * Start supplements after surgery to augment her nutritional status to help with healing of her wound. 3. DVT prophylaxis with Lovenox Code Visit Inpatient E&M: 41480 Subs Hosp L2
[2017-10-21 10:18] LABS: Prealbumin 17.6 mg/dL (20.0-40.0)
--- NOTE | 2017-10-21 10:37 | NURSING ---
Pt is scheduled for surgical debridement of the right trochanter pressure injury today. will leave dressing in place.
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
--- NOTE | 2017-10-21 15:24 | PCA ---
pt off floor
--- NOTE | 2017-10-21 15:25 | SOF_PTH ---
PATIENT: TORREY OCHOA LOC: MS3 U#:[id number] AGE/SX: 42/F ROOM: PA318 RE10/20/[address]: Dr. Lul Whitfield DO : 1975 BED: 1 DIS: 10/25/2017 SPEC #: [id number] RECD: 10/21/17 16:17 STATUS: ANTONIO REQ #: [id number] ENRICO: 10/21/17 15:[address]: Tylor Keller DEPT: SURGICAL PATHOLOGY RECD BY: Jamin De La Cruz ENTERED: 10/22/17 14:01 SP TYPE: SOFT TISS OTHR DR: MD Dr. Ramos Waggoner MD Dr. Eric Jopperi, DO Dr. Ghasem E Ashelfah, MD Dr. James A Slaby, MD Dr. Robert Leininger, MD Tissues: Soft tissues, NOS Procedures: Surgery Specimen Level III Comments: @ Ordering doctor for SUIV edited from to @ by CHAVO at 10/22/17 1439 @ Submitting doctor edited from to @ by RGOOD at 10/22/17 1439 HEADER OPERATION: Excision pressure sore, partial ostectomy right hip PRE-OP DIAGNOSIS: Right hip stage IV decubitus ulcer, suspected underlying abscess TISSUE SUBMITTED: Right trochanteric pressure sore soft tissue MICROSCOPIC DIAGNOSIS Right trochanteric pressure sore soft tissue: Focal ulceration, acute and chronic inflammation, granulation tissue reaction and reactive changes. MARCELINO:abdias 10/29/17 MICROSCOPIC DESCRIPTION Slides are reviewed. GROSS DESCRIPTION Received in fixative is one container labeled with the patient's name and designated right trochanteric pressure sore. The specimen consists of an irregular fragment of pink-ray skin with attached yellow fatty tissue measuring 5 x 4 x 2.5 cm. The cutaneous surface displays an ulcer measuring 2.6 x 1.5 x 0.5 cm. Serial sections do not reveal mass lesions. Legal Entity Controller sections are submitted in two cassettes. / AM:abdias 10/22/17 TC:2 CPT: 33779
--- NOTE | 2017-10-21 16:04 | OP.PN_ITS ---
Immediate Post-Op Note Date of Procedure: 10/21/17 Primary Surgeon/Physician: Tylor Keller balance wheel screw hole driller: None Pre-Operative Diagnosis: 1. Right trochanteric pressure sore, at least Stage III. 2. History of IV drug use. 3. Smoker. Post-Operative Diagnosis: 1. Right trochanteric pressure sore, Stage IV. 2. History of IV drug use. 3. Smoker. Surgery/Procedure Performed:: Excision right trochanteric pressure sore including muscle, Stage IV. Description of Surgical Findings:: The patient is a 42 year old F who was admitted for a right trochanteric pressure sore that developed in April 2017. She has a history of IV drug use and she had passed out back in April. By the time she was found, the pressure sore had developed. She was recently had an ECF and NPWT device was used for wound care. She was discharged from the ECF as she was admited to the hospital. The patient is ambulatory. She denies any fever. WBC on admission was 5.6. CT scan pelvis was done which showed a 4.3 cm x 1.5 cm soft tissue density overlying the greater trochanter to the proximal right femur. There is concern of extension of the pressure sore to the hip joint with possible underlying infection. I was asked to evaluate this patient for surgical options for treatment. Today the patient underwent excision right trochanteric pressure sore including muscle, Stage IV. Size of defect right trochanteric area - 7 x 6.5 x 3 cm. Estimated Blood Loss: 25 ml. Specimen's removed: 1. Right trochanteric pressure sore soft tissue to Pathology and Microbiology. 2. MRSA wound DNA by PCR. Drains: None. Type of Anesthesia:: General - Admit VTE Documentation VTE Present on Admission: No VTE Mechan Device Prophylaxis: SCD's VTE Pharm Prophylaxis ordered?: Yes
--- NOTE | 2017-10-21 17:14 | PCA ---
pt off floor
[2017-10-21] MEDS: oxyCODONE 5 MG Tablet PO ×2 (18:14→23:15)
[2017-10-21 18:44] LABS: M R Staph aureus DNA By PCR Negative (Negative); Probe Check PASS; Specimen Processing Control PASS; Staph aureus DNA By PCR POSITIVE (Negative)
--- NOTE | 2017-10-21 19:48 | PCM.OPRPT ---
Report of Operation Date of Procedure: 10/21/17 Pre-Operative Diagnosis: 1. Right trochanteric pressure sore, at least Stage III. 2. History of IV drug use. 3. Smoker. Post-Operative Diagnosis: 1. Right trochanteric pressure sore, Stage IV. 2. History of IV drug use. 3. Smoker. Surgery/Procedure Performed:: Excision right trochanteric pressure sore including muscle, Stage IV. Description of Surgical Findings:: The patient is a 42 year old F who was admitted for a right trochanteric pressure sore that developed in April 2017. She has a history of IV drug use and she had passed out back in April. By the time she was found, the pressure sore had developed. She was recently had an ECF and NPWT device was used for wound care. She was discharged from the ECF as she was admitted to the hospital. The patient is ambulatory. She denies any fever. WBC on admission was 5.6. CT scan pelvis was done which showed a 4.3 cm x 1.5 cm soft tissue density overlying the greater trochanter to the proximal right femur. There is concern of extension of the pressure sore to the hip joint with possible underlying infection. I was asked to evaluate this patient for surgical options for treatment. Patient was informed of the risks and complications of the procedure including alternatives to surgery. These were discussed with her personally. She voices understanding and wishes to proceed. Encouraged the patient to stop smoking as it may have deleterious effects on wound healing. Size of defect right trochanteric area - 7 x 6.5 x 3 cm. produce team lead: None Type of Anesthesia:: General Specimen's removed: 1. Right trochanteric pressure sore soft tissue to Pathology and Microbiology. 2. MRSA wound DNA by PCR. Drains: None. Estimated Blood Loss (mL): 25 ml. Description of Procedure: Patient was taken to OR in supine position and placed under general anesthesia. She was then placed in the lateral position, and her right hip was prepped and draped in the usual fashion. SCD's were placed for DVT prophylaxis. Perioperative antibiotics were given intravenously. Using a scalpel, the pressure sore right trochanteric area was excised in a circular fashion down through the subcutaneous tissue and involving some underlying muscle. With muscle involvement, this is a Stage IV pressure sore. Bone was palpable but not exposed. Soft tissue was sent to Pathology for analysis to rule out carcinoma and to Microbiology for culture. An MRSA DNA by PCR swab was also sent. The wound was irrigated with saline. Hemostasis was obtained with electrocautery. The size of the wound after the excision of the pressure sore was 7 x 6.5 x 3 cm. The wound was dressed with Mepitel nonadherent dressing followed by Kerlix gauze and Betadine dressing followed by dry Kerlix gauze and ABD pad compression dressing. Patient tolerated the procedure well. She was sent to PACU in satisfactory condition. She will be sent back upstairs for further postop care. The VAC will be placed tomorrow. Continue Vancomycin until the culture results are available. After discharge, can [facility]up [facility]. Grafts/Implants Used: None. - Complications None. - Admit VTE Documentation VTE Present on Admission: No VTE Mechan Device Prophylaxis: SCD's VTE Pharm Prophylaxis ordered?: Yes Code Visit Surgery Charges CPT - 80136 ICD-10 - L89.214, F19.90, F17.200
[2017-10-21] MEDS: 0.9% NaCl IVPB Med Flush (250 mL) 15 ML IV (21:38)
[2017-10-21] MEDS: Acetaminophen 325 MG Tablet 650 MG PO (21:54)
[2017-10-21] MEDS: 0.9% Normal Saline 1,000 ML 999 ML IV (21:54)
[2017-10-21] MEDS: 0.9% NaCl Peripheral Flush Adult/Peds IV (22:14)
[2017-10-22] VITALS (14 sets, daily range): BP systolic 81–110; BP diastolic 47–74; PULSE 57–100; RESP 14–18; TEMP 36.7–37; O2SAT 95–100
[2017-10-22] MEDS: oxyCODONE 5 MG Tablet PO ×3 (03:52→14:39)
[2017-10-22] MEDS: 0.9% Normal Saline 1,000 ML 125 ML IV ×3 (04:12→22:36)
[2017-10-22 04:18] LABS: Vancomycin, Trough Level 8.1 ug/mL (5.0-15.0)
--- NOTE | 2017-10-22 04:52 | PCM.RX.CS ---
Consult Pharmacy has been consulted to manage selected antiobiotic: Vancomycin Type of Consult: Follow-up Suspected Infection: Skin/Soft tissue Prior Doses of Antibiotics Received/Current Regimen: Medications Vancomycin HCl 750 mg/ Sodium (Chloride) 265 mls @ 265 mls/hr IV Q12H SYIBL Discontinued Medications Vancomycin HCl () 500 mg in 100 mls @ 100 mls/hr IV Q12H SYBIL Last Admin: 10/22/17 04:12 Dose: 100 mls/hr Labs: Sodium 141 mmol/L (136-145) 10/20/17 12:24 Potassium 4.5 mmol/L (3.5-5.1) 10/20/17 12:24 Chloride 108 mmol/L (98-107) H 10/20/17 12:24 Carbon Dioxide 26.0 mmol/L (21.0-32.0) 10/20/17 12:24 Anion Gap 7 (5-15) 10/20/17 12:24 BUN 7 mg/dL (7-18) 10/20/17 12:24 Creatinine 0.82 mg/dL (0.55-1.02) 10/20/17 12:24 Est GFR (MDRD) Af Amer 99 mL/min (>60) 10/20/17 12:24 Est GFR (MDRD) Non-Af 82 mL/min (>60) 10/20/17 12:24 BUN/Creatinine Ratio 8.6 RATIO (10-20) L 10/20/17 12:24 Glucose 92 mg/dL (74-106) 10/20/17 12:24 Vancomycin Trough 8.1 ug/mL (5.0-15.0) 10/22/17 03:50 Weight used for dosin.8 kg Estimated Creatinine Clearance: 69 Goal Trough: 10-15 mcg/mL Pharmacy Plan for Drug Dosing: Dose increased to 750mg q12h due to trough level of 8.1. Pharmacy Service will continue to monitor and adjust dosing as required. Follow-Up Labs: Trough Vancomycin Labs to be done on [date and time ordered]: 10/24/17 @1314
--- NOTE | 2017-10-22 04:56 | PHA.PHARE_ITS ---
Consult Pharmacy has been consulted to manage selected antiobiotic: Vancomycin Type of Consult: Follow-up Suspected Infection: Skin/Soft tissue Prior Doses of Antibiotics Received/Current Regimen: Medications Vancomycin HCl 750 mg/ Sodium (Chloride) 265 mls @ 265 mls/hr IV Q12H SYBIL Discontinued Medications Vancomycin HCl () 500 mg in 100 mls @ 100 mls/hr IV Q12H SYBIL Last Admin: 10/22/17 04:12 Dose: 100 mls/hr Labs: Sodium 141 mmol/L (136-145) 10/20/17 12:24 Potassium 4.5 mmol/L (3.5-5.1) 10/20/17 12:24 Chloride 108 mmol/L (98-107) H 10/20/17 12:24 Carbon Dioxide 26.0 mmol/L (21.0-32.0) 10/20/17 12:24 Anion Gap 7 (5-15) 10/20/17 12:24 BUN 7 mg/dL (7-18) 10/20/17 12:24 Creatinine 0.82 mg/dL (0.55-1.02) 10/20/17 12:24 Est GFR (MDRD) Af Amer 99 mL/min (>60) 10/20/17 12:24 Est GFR (MDRD) Non-Af 82 mL/min (>60) 10/20/17 12:24 BUN/Creatinine Ratio 8.6 RATIO (10-20) L 10/20/17 12:24 Glucose 92 mg/dL (74-106) 10/20/17 12:24 Vancomycin Trough 8.1 ug/mL (5.0-15.0) 10/22/17 03:50 Weight used for dosin.8 kg Estimated Creatinine Clearance: 69 Goal Trough: 10-15 mcg/mL Pharmacy Plan for Drug Dosing: Dose increased to 750mg q12h due to trough level of 8.1. Pharmacy Service will continue to monitor and adjust dosing as required. Follow-Up Labs: Trough Vancomycin Labs to be done on [date and time ordered]: 10/24/17 @9384
[2017-10-22] MEDS: Enoxaparin 40 MG/0.4 ML Syringe SC (06:00)
--- NOTE | 2017-10-22 06:22 | NURSING ---
Anews called this nurse to let know patient was on the ground floor and outside smoking. When patient returned to floor this nurse informed patient that we are a nonsmoking campus. Patient stated she just wanted to go for a walk, I didn't go out to smoke. This nurse told patient that she is free to walk in the halls but asked if she could please stay on the floor while being hooked up to telemetry and IV antibiotics.
--- NOTE | 2017-10-22 08:29 | NURSING ---
wound photo: right hip
[2017-10-22 09:51] LABS: Anion Gap 9 (5-15); BUN 13 mg/dL (7-18); BUN/Creat Ratio 22.9 RATIO (10-20); CRP < 2.90 mg/L (0.0-3.0); Calcium,Total 8.3 mg/dL (8.5-10.1); Chloride 115 mmol/L (98-107); Creatinine, Serum 0.57 mg/dL (0.55-1.02); EST Glomerular Filtration Rate 124 mL/min (>60); Est Glom Filt Rate - Afr Amer 150 mL/min (>60); Estimated Creatinine Clearance 98.97 ml/min; Glucose 145 mg/dL (74-106); Potassium 3.9 mmol/L (3.5-5.1); Prealbumin 14.9 mg/dL (20.0-40.0); Sodium Level 145 mmol/L (136-145)
[2017-10-22 10:04] LABS: Erythrocyte Sedimentation Rate 2 mm/hr (0-20); Hematocrit 35.8 % (37-47); Hemoglobin 11.8 g/dl (12.0-15.0); Mean Corpuscular Hgb 28.7 pg (27.0-32.0); Mean Corpuscular Volume 87.1 fL (81-99); Mean Platelet Vol. 12.3 fl (6.2-12.0); Platelet Count 159 K/mm3 (150-450); RBC Distribution Width CV 13.2 % (11.6-14.6); RBC Distribution Width SD 42.5 fl (35.1-43.9); Red Blood Count 4.11 M/mm3 (4.2-5.4); Scan Indicated on CBC? Y/N NO; White Blood Count 7.1 K/mm3 (4.4-11.0)
--- NOTE | 2017-10-22 11:15 | PCM.PN.HOSP ---
Subjective: pain in right hip is doing well, post op. No new complaints at this time. Wound-vac placed. Vitals/I&O's: Vital Signs Temp Pulse Resp BP Pulse Ox 36.9 C 74 18 91/58 L 100 10/22/17 09:00 10/22/17 09:00 10/22/17 09:00 10/22/17 09:00 10/22/17 09:00 Oxygen Delivery Method Room Air Weight: 48.76 kg Body Mass Index (BMI) 19.0 Finger Stick Blood Glucose 144 Intake and Output for Last 24 Hours 10/20/17 10/21/17 10/22/17 23:59 23:59 23:59 Intake Total 850 / 850 900 / 900 2433 / 2433 Output Total 1100 / 1100 Balance 850 / 850 900 / 900 1333 / 1333 General: Alert, No apparent distress HEENT: Atraumatic, Normocephalic Oral: Moist Mucosa, - - poor dentition Neck: No Nodes, Thyroid Normal Size and Texture Lungs: Clear to auscultation, Normal air movement, No rhonchi, No wheeze Cardiovascular: Regular rate, Regular Rhythm, Normal S1, Normal S2, No murmurs Abdomen: Bowel Sounds Present, Soft, Non Tender, Non-Distended, No Hepato-splenomegaly Extremities: No edema, No Calf Tenderness Psych/Mental Status: Normal Affect, Appropriate Laboratory Results 10/21/17 : S.aureus Protein A PCR POSITIVE H, MRSA (PCR) Negative 10/22/17 03:50: Vancomycin Trough 8.1 10/22/17 08:30: WBC 7.1, RBC 4.11 L, Hgb 11.8 L, Hct 35.8 L, MCV 87.1, MCH 28.7, MCHC 33.0, RDW 13.2, RDW Differential 42.5, Plt Count 159, MPV 12.3 H, ESR 2 10/22/17 08:30: Sodium 145, Potassium 3.9, Chloride 115 H, Carbon Dioxide 21.0, Anion Gap 9, BUN 13, Creatinine 0.57, Estim Creat Clear Calc 98.97, Est GFR (MDRD) Af Amer 150, Est GFR (MDRD) Non-Af 124, BUN/Creatinine Ratio 22.9 H, Glucose 145 H, Calcium 8.3 L, C-React Prot Ext Range < 2.90, Prealbumin 14.9 L Current Medications Acetaminophen (Tylenol) 650 mg PO Q6H PRN PRN PRN Reason: Fever, headache, pain Last Admin: 10/21/17 21:54 Dose: 650 mg Enoxaparin Sodium (Lovenox) 40 mg SC DAILY@0600 [facility] Last Admin: 10/22/17 06:00 Dose: 40 mg Hydralazine HCl (Apresoline Iv) 10 mg IV Q4H PRN PRN PRN Reason: SBP > 160 Sodium Chloride () 250 mls @ 15 mls/hr IV .[id number] PRN PRN Reason: SALINE FLUSH Last Admin: 10/21/17 21:38 Dose: 15 mls/hr Sodium Chloride () 1,000 mls @ 125 mls/hr IV .Q8H [facility] Last Admin: 10/22/17 04:12 Dose: 125 mls/hr Magnesium Hydroxide (Milk Of Magnesia) 30 ml PO DAILY PRN PRN PRN Reason: Constipation Morphine Sulfate () 1 - 2 mg IV Q4H PRN PRN PRN Reason: PAIN Nutritional Formula (Lactose Free) (Ensure Clear) 120 ml PO 4X/DAY [facility] Last Admin: 10/22/17 08:28 Dose: Not Given Ondansetron HCl (Zofran) 4 mg IV Q6H PRN PRN PRN Reason: NAUSEA/VOMITING Oxycodone HCl (Oxyir) 5 - 10 mg PO Q4H PRN PRN PRN Reason: SEVERE PAIN (6-10/10) Last Admin: 10/22/17 09:31 Dose: 5 mg Sodium Chloride () 5 - 30 ml IV UD PRN PRN Reason: SALINE FLUSH Last Admin: 10/21/17 22:14 Dose: 10 ml Zolpidem Tartrate (Ambien (Generic)) 5 mg PO QHS PRN PRN PRN Reason: INSOMNIA Medical Necessity - Tobacco Use Smoking Status: Current every day smoker Tobacco Use: Cigarettes Assessment/Plan 1. 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 Culture growing out S. aureas and GNR ID following. vanc discontinued. 2. Suspected protein malnutrition Prealbumin Consult nutrition Start supplements after surgery to augment her nutritional status to help with healing of her wound. 3. DVT prophylaxis with Lovenox Code Visit Inpatient E&M: 76695 Subs Hosp L2
--- NOTE | 2017-10-22 11:38 | PN_ITS ---
Subjective: pain in right hip is doing well, post op. No new complaints at this time. Wound- vac placed. Vitals/I&O's: Vital Signs Temp Pulse Resp BP Pulse Ox 36.9 C 74 18 91/58 L 100 10/22/17 09:00 10/22/17 09:00 10/22/17 09:00 10/22/17 09:00 10/22/17 09:00 Oxygen Delivery Method Room Air Weight: 48.76 kg Body Mass Index (BMI) 19.0 Finger Stick Blood Glucose 144 Intake and Output for Last 24 Hours 10/20/17 10/21/17 10/22/17 23:59 23:59 23:59 Intake Total 850 / 850 900 / 900 2433 / 2433 Output Total 1100 / 1100 Balance 850 / 850 900 / 900 1333 / 1333 General: Alert, No apparent distress HEENT: Atraumatic, Normocephalic Oral: Moist Mucosa, - - poor dentition Neck: No Nodes, Thyroid Normal Size and Texture Lungs: Clear to auscultation, Normal air movement, No rhonchi, No wheeze Cardiovascular: Regular rate, Regular Rhythm, Normal S1, Normal S2, No murmurs Abdomen: Bowel Sounds Present, Soft, Non Tender, Non-Distended, No Hepato- splenomegaly Extremities: No edema, No Calf Tenderness Psych/Mental Status: Normal Affect, Appropriate Laboratory Results 10/21/17 : S.aureus Protein A PCR POSITIVE H, MRSA (PCR) Negative 10/22/17 03:50: Vancomycin Trough 8.1 10/22/17 08:30: WBC 7.1, RBC 4.11 L, Hgb 11.8 L, Hct 35.8 L, MCV 87.1, MCH 28.7 , MCHC 33.0, RDW 13.2, RDW Differential 42.5, Plt Count 159, MPV 12.3 H, ESR 2 10/22/17 08:30: Sodium 145, Potassium 3.9, Chloride 115 H, Carbon Dioxide 21.0, Anion Gap 9, BUN 13, Creatinine 0.57, Estim Creat Clear Calc 98.97, Est GFR ( MDRD) Af Amer 150, Est GFR (MDRD) Non-Af 124, BUN/Creatinine Ratio 22.9 H, Glucose 145 H, Calcium 8.3 L, C-React Prot Ext Range < 2.90, Prealbumin 14.9 L Current Medications Acetaminophen (Tylenol) 650 mg PO Q6H PRN PRN PRN Reason: Fever, headache, pain Last Admin: 10/21/17 21:54 Dose: 650 mg Enoxaparin Sodium (Lovenox) 40 mg SC DAILY@0600 [facility] Last Admin: 10/22/17 06:00 Dose: 40 mg Hydralazine HCl (Apresoline Iv) 10 mg IV Q4H PRN PRN PRN Reason: SBP > 160 Sodium Chloride () 250 mls @ 15 mls/hr IV .[id number] PRN PRN Reason: SALINE FLUSH Last Admin: 10/21/17 21:38 Dose: 15 mls/hr Sodium Chloride () 1,000 mls @ 125 mls/hr IV .Q8H [facility] Last Admin: 10/22/17 04:12 Dose: 125 mls/hr Magnesium Hydroxide (Milk Of Magnesia) 30 ml PO DAILY PRN PRN PRN Reason: Constipation Morphine Sulfate () 1 - 2 mg IV Q4H PRN PRN PRN Reason: PAIN Nutritional Formula (Lactose Free) (Ensure Clear) 120 ml PO 4X/DAY [facility] Last Admin: 10/22/17 08:28 Dose: Not Given Ondansetron HCl (Zofran) 4 mg IV Q6H PRN PRN PRN Reason: NAUSEA/VOMITING Oxycodone HCl (Oxyir) 5 - 10 mg PO Q4H PRN PRN PRN Reason: SEVERE PAIN (6-10/10) Last Admin: 10/22/17 09:31 Dose: 5 mg Sodium Chloride () 5 - 30 ml IV UD PRN PRN Reason: SALINE FLUSH Last Admin: 10/21/17 22:14 Dose: 10 ml Zolpidem Tartrate (Ambien (Generic)) 5 mg PO QHS PRN PRN PRN Reason: INSOMNIA Medical Necessity - Tobacco Use Smoking Status: Current every day smoker Tobacco Use: Cigarettes Assessment/Plan 1. 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 * Culture growing out S. aureas and GNR * ID following. * vanc discontinued. 2. Suspected protein malnutrition * Prealbumin * Consult nutrition * Start supplements after surgery to augment her nutritional status to help with healing of her wound. 3. DVT prophylaxis with Lovenox Code Visit Inpatient E&M: 43592 Subs Hosp L2
--- NOTE | 2017-10-22 12:13 | PCM.HP.ID ---
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 Whitfield History of Present Illness: The patient is a 42 year old F with h/o IV heroin use and R hip ulcer. Ulcer present since April after being found down with needles nearby. Has not healed after wound vac in place for several months. Some drainage and soreness in hip. No fever, no redness. Had not been on abx prior to presentation she reports. Was dx with hep C at the time this developed. Reports neg for HIV. Due to non-healing, came to [facility]. PCR (+) mssa, taken to OR 10/[address] Keller. Now wound vac in place. Has been on vanc. Reports rash as an with PCN but thinks she's tolerated augmentin with no issue. Full ROS performed and neg except as noted above. 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 (Chronic) at least a Stage III Allergies/Adverse Reactions: Allergies Penicillins Allergy (Verified 10/20/17 11:49) Unknown aspirin Adverse Reaction (Verified 10/20/17 11:49) Upset Stomach Home Medications: Ambulatory Orders Medication Instructions Recorded NK [NK] 05/23/17 - Social History Drug Use: heroin Vital Signs Temp Pulse Resp BP Pulse Ox 98.5 F 74 18 91/58 L 100 10/22/17 09:00 10/22/17 09:00 10/22/17 09:00 10/22/17 09:00 10/22/17 09:00 Oxygen Delivery Method Room Air Weight: 48.76 kg Body Mass Index (BMI) 19.0 Finger Stick Blood Glucose 144 Laboratory Tests Past 24 Hrs 10/21/17 10/22/17 10/22/17 Unknown 03:50 08:30 WBC 7.1 RBC 4.11 L Hgb 11.8 L Hct 35.8 L MCV 87.1 MCH 28.7 MCHC 33.0 RDW 13.2 RDW Differential 42.5 Plt Count 159 MPV 12.3 H ESR 2 Sodium Potassium Chloride Carbon Dioxide Anion Gap BUN Creatinine Estim Creat Clear Calc Est GFR (MDRD) Af Amer Est GFR (MDRD) Non-Af BUN/Creatinine Ratio Glucose Calcium C-React Prot Ext Range Prealbumin Vancomycin Trough 8.1 S.aureus Protein A PCR POSITIVE H MRSA (PCR) Negative 10/22/17 08:30 WBC RBC Hgb Hct MCV MCH MCHC RDW RDW Differential Plt Count MPV ESR Sodium 145 Potassium 3.9 Chloride 115 H Carbon Dioxide 21.0 Anion Gap 9 BUN 13 Creatinine 0.57 Estim Creat Clear Calc 98.97 Est GFR (MDRD) Af Amer 150 Est GFR (MDRD) Non-Af 124 BUN/Creatinine Ratio 22.9 H Glucose 145 H Calcium 8.3 L C-React Prot Ext Range < 2.90 Prealbumin 14.9 L Vancomycin Trough S.aureus Protein A PCR MRSA (PCR) - Other Studies Radiology: [] reviewed Other Studies: [] Route of nutrition/ use of supplements: [] Nutritional Intake: [] IV Site: [] Bergeron Catheter: [] - Physical Exam General: Alert, Oriented x3, Cooperative, No apparent distress HEENT: Atraumatic, PERRLA, EOMI Neck: Supple, No Nodes Lungs: Clear to auscultation, Normal air movement Cardiovascular: Regular rate, Regular Rhythm Abdomen: Bowel Sounds Present, Soft, Non Tender, Non-Distended Extremities: No edema Skin: Ulcer/ Wound - R hip wound vac in place Musculoskeletal: No Tenderness to Palpation of Joints or Extremities Neurological: Cranial nerves II-XII grossly intact - Assessment/Plan Antibiotics: [] Assessment/Plan: [] R hip MSSA infected ulcer - surg cx pending. PCR with MSSA. Wound cx with staph and GPR. Reports tolerating augmentin in past, no h/o anaphylaxis. Will stop vanc, cover with cefazolin and doxy. No sign of bone/joint involvement per op note. Plan on po abx at discharge. IVDU and hep C - will check hep panel and HIV along with hep C pcr. Thank you will follow, d/w primary team.
--- NOTE | 2017-10-22 12:14 | CASEMGMT ---
Social Work Note This worker was informed that pt is getting Midline placed and will most likely be discharged with IV antibiotics. SW in to meet with pt to discuss discharge plans. SW informed pt that she will most likely be discharged on IV antibiotics and that she will possibly need placed somewhere as Home Health typically doesn't provide IV antibiotics. Pt states that she would like to go home and do IV antibiotics as an outpatient at [facility]. SW informed pt that this worker will relay the message to MAGED GOMES to set up IV antibiotics and to follow up with pt. Pt states that she will have transportation to and from appointments. SW placed a call to [facility] [place] and a message was left to update her of this. SW will continue to follow along to assist if any additional needs or concerns arise. Pt denied additional needs or concerns at this time. Plan: Discharge home with IV antibiotics as an outpatient Brittani Dotson DYE RANGE OPERATOR CLOTH, ORTHOPAEDIC NURSE
--- NOTE | 2017-10-22 13:43 | CASEMGMT ---
RN CM Note. Per Dr. Browne, plan is for IV antibiotics now, po antibiotics on dc. If this changes, CM can assist with set up on Wednesday. Kimber MARIEN RN ACM
--- NOTE | 2017-10-22 13:46 | CASEMGMT ---
Social Work Note SW received message from RN MIREYA Mckeon that pt will be getting a midline but that it is just for her time at [facility] and that Dr. Browne plans on discharging pt on PO antibiotics. If pt discharges with PO antibiotics pt should be able to go home and resume Home Health Care. ORAL will continue to follow to assist with discharge planning. Plan: Home with [facility] Brittani Dotson FAMILY LAW MEDIATOR, DIRECTOR OF [employer]
[2017-10-22] MEDS: Cefazolin 1 GM/50 ML BAG IV ×2 (14:00→22:36)
[2017-10-22 14:12] LABS: HIV - WCH Non-Reactive (Nonreactive)
[2017-10-22] MEDS: Acetaminophen 325 MG Tablet 650 MG PO (17:04)
--- NOTE | 2017-10-22 19:03 | PCM.PN.SRG ---
Subjective: Postop #1 Patient is resting comfortably. VAC applied today. - Physical Exam General: Alert, Oriented x3 HEENT: PERRLA, EOMI Neck: Supple Skin: Ulcer/ Wound - right trochanteric wound is stable. No bleeding. Muscle is viable. VAC applied today. Neurological: Cranial nerves II-XII grossly intact Psych/Mental Status: Normal Affect, Appropriate Vital Signs Temp Pulse Resp BP Pulse Ox 98.6 F 100 18 103/60 100 10/22/17 14:29 10/22/17 18:36 10/22/17 14:29 10/22/17 14:29 10/22/17 14:29 Oxygen Delivery Method Room Air Weight: 107 lb 7.958 oz Body Mass Index (BMI) 19.0 Finger Stick Blood Glucose 144 Intake and Output for Last 24 Hours 10/20/17 10/21/17 10/22/17 23:59 23:59 23:59 Intake Total 850 / 850 900 / 900 3814 / 3814 Output Total 1100 / 1100 Balance 850 / 850 900 / 900 2714 / 2714 Microbiology Past 72 Hours 10/21/17 Unknown Gram Stain - Final Tissue - Hip Wound Culture - Preliminary No growth-Final to follow Laboratory Tests Past 24 Hrs 10/22/17 10/22/17 10/22/17 03:50 08:30 08:30 WBC 7.1 RBC 4.11 L Hgb 11.8 L Hct 35.8 L MCV 87.1 MCH 28.7 MCHC 33.0 RDW 13.2 RDW Differential 42.5 Plt Count 159 MPV 12.3 H ESR 2 Sodium 145 Potassium 3.9 Chloride 115 H Carbon Dioxide 21.0 Anion Gap 9 BUN 13 Creatinine 0.57 Estim Creat Clear Calc 98.97 Est GFR (MDRD) Af Amer 150 Est GFR (MDRD) Non-Af 124 BUN/Creatinine Ratio 22.9 H Glucose 145 H Calcium 8.3 L C-React Prot Ext Range < 2.90 Prealbumin 14.9 L Vancomycin Trough 8.1 Hepatitis A IgM Ab Hep Bs Antigen Hep B Core IgM Ab Hepatitis C Ab (EIA) HCV RNA Quant (PCR) HIV 1&2 Antibody 10/22/17 10/22/17 08:50 08:50 WBC RBC Hgb Hct MCV MCH MCHC RDW RDW Differential Plt Count MPV ESR Sodium Potassium Chloride Carbon Dioxide Anion Gap BUN Creatinine Estim Creat Clear Calc Est GFR (MDRD) Af Amer Est GFR (MDRD) Non-Af BUN/Creatinine Ratio Glucose Calcium C-React Prot Ext Range Prealbumin Vancomycin Trough Hepatitis A IgM Ab Pending Hep Bs Antigen Pending Hep B Core IgM Ab Pending Hepatitis C Ab (EIA) Pending HCV RNA Quant (PCR) Pending HIV 1&2 Antibody Non-Reactive Medical Necessity - Tobacco Use Smoking Status: Current every day smoker Tobacco Use: Cigarettes Assessment/Plan 1. Right trochanteric pressure sore, Stage IV. 2. History of IV drug use. 3. Smoker. 4. s/p excision right trochanteric pressure sore including muscle, Stage IV. VAC applied today. To be changed three times per week at 150 mmHg continuous suction. Culture is showing Staphylococcus aureus. MRSA is negative. Vancomycin has been stopped. She is currently on Ancef and Doxycycline. Prealbumin mildly low at 14.9. Encourage nutritional supplementation with protein to help the healing process. After discharge, followup at the [facility]. If there is a plateau in the healing process, can proceed with delayed closure with a fasciocutaneous flap or muscle flap. If a flap is done, then bedrest will be necessary for 6 weeks. Encouraged the patient to stop smoking as it may have deleterious effects on wound healing.
[2017-10-22] MEDS: Doxycycline 100 MG CAPSULE PO (22:28)
[2017-10-23] VITALS (10 sets, daily range): BP systolic 103–161; BP diastolic 65–96; PULSE 55–79; RESP 14–18; TEMP 36.8–37.4; O2SAT 94–98
[2017-10-23] MEDS: Cefazolin 1 GM/50 ML BAG IV ×3 (05:59→22:14)
[2017-10-23] MEDS: Enoxaparin 40 MG/0.4 ML Syringe SC (06:00)
[2017-10-23] MEDS: oxyCODONE 5 MG Tablet PO ×3 (06:00→20:25)
[2017-10-23] MEDS: Doxycycline 100 MG CAPSULE PO ×2 (08:04→22:14)
[2017-10-23] MEDS: 0.9% Normal Saline 1,000 ML 125 ML IV ×2 (08:07→16:45)
--- NOTE | 2017-10-23 11:25 | PCM.PN.HOSP ---
Subjective: No new complaints. Vitals/I&O's: Vital Signs Temp Pulse Resp BP Pulse Ox 37.2 C 76 18 105/74 98 10/23/17 07:59 10/23/17 07:59 10/23/17 07:59 10/23/17 07:59 10/23/17 07:59 Oxygen Delivery Method Room Air Weight: 48.76 kg Body Mass Index (BMI) 19.0 Finger Stick Blood Glucose 144 Intake and Output for Last 24 Hours 10/21/17 10/22/17 10/23/17 23:59 23:59 23:59 Intake Total 900 / 900 3814 / 3814 2337 / 2337 Output Total 1100 / 1100 Balance 900 / 900 2714 / 2714 2337 / 2337 General: Alert, No apparent distress, - - Appears older than stated age. HEENT: Atraumatic, Normocephalic Neck: No Nodes, Thyroid Normal Size and Texture Lungs: Clear to auscultation, Normal air movement, No rhonchi, No wheeze Cardiovascular: Regular rate, Regular Rhythm, Normal S1, Normal S2, No murmurs Abdomen: Bowel Sounds Present, Soft, Non Tender, Non-Distended, No Hepato-splenomegaly Extremities: - - Edema of the hands bilaterally with the right being greater than the left. No tenderness to palpation. Wound on right buttocks has a wound VAC applied but surrounding tissue is not erythematous. Psych/Mental Status: Appropriate, Flat Affect Microbiology Past 72 Hours 10/21/17 Unknown Tissue - Hip Gram Stain - Final 10/21/17 Unknown Tissue - Hip Wound Culture - Preliminary No growth-Final to follow Laboratory Results 10/22/17 08:50: HIV 1&2 Antibody Non-Reactive 10/22/17 08:50: Hepatitis A IgM Ab Pending, Hep Bs Antigen Pending, Hep B Core IgM Ab Pending, Hepatitis C Ab (EIA) Pending, HCV RNA Quant (PCR) Pending Current Medications Acetaminophen (Tylenol) 650 mg PO Q6H PRN PRN PRN Reason: Fever, headache, pain Last Admin: 10/22/17 17:04 Dose: 650 mg Doxycycline Monohydrate (Doxycycline) 100 mg PO BID [facility] Last Admin: 10/23/17 08:04 Dose: 100 mg Enoxaparin Sodium (Lovenox) 40 mg SC DAILY@0600 [facility] Last Admin: 10/23/17 06:00 Dose: 40 mg Hydralazine HCl (Apresoline Iv) 10 mg IV Q4H PRN PRN PRN Reason: SBP > 160 Sodium Chloride () 250 mls @ 15 mls/hr IV .[id number] PRN PRN Reason: SALINE FLUSH Last Admin: 10/21/17 21:38 Dose: 15 mls/hr Sodium Chloride () 1,000 mls @ 125 mls/hr IV .Q8H SYBIL Last Admin: 10/23/17 08:07 Dose: 125 mls/hr Cefazolin Sodium () 1 gm in 50 mls @ 100 mls/hr IV Q8 SYBIL Last Admin: 10/23/17 05:59 Dose: 100 mls/hr Magnesium Hydroxide (Milk Of Magnesia) 30 ml PO DAILY PRN PRN PRN Reason: Constipation Morphine Sulfate () 1 - 2 mg IV Q4H PRN PRN PRN Reason: PAIN Nutritional Formula (Lactose Free) (Ensure Clear) 120 ml PO 4X/DAY [facility] Last Admin: 10/23/17 08:05 Dose: Not Given Ondansetron HCl (Zofran) 4 mg IV Q6H PRN PRN PRN Reason: NAUSEA/VOMITING Oxycodone HCl (Oxyir) 5 - 10 mg PO Q4H PRN PRN PRN Reason: SEVERE PAIN (6-10/10) Last Admin: 10/23/17 06:00 Dose: 10 mg Sodium Chloride () 5 - 30 ml IV UD PRN PRN Reason: SALINE FLUSH Last Admin: 10/21/17 22:14 Dose: 10 ml Sodium Chloride () 10 - 20 ml IV UD PRN PRN Reason: Midline Flush Zolpidem Tartrate (Ambien (Generic)) 5 mg PO QHS PRN PRN PRN Reason: INSOMNIA Medical Necessity - Tobacco Use Smoking Status: Current every day smoker Tobacco Use: Cigarettes Assessment/Plan 1. 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 Culture growing out MSSA, gram-negative madeline and group A strep ID following. vanc discontinued. On ceftezole and and doxycycline 2. protein malnutrition Prealbumin 14.9 Consult nutrition Start supplements after surgery to augment her nutritional status to help with healing of her wound. 3. Hand swelling Patient is asymptomatic with this May be related with her poor nutritional status. Advised patient to keep her hands elevated above her heart to see if that would help with the swelling. 4. DVT prophylaxis with Lovenox Code Visit Inpatient E&M: 31811 Subs Hosp L2
--- NOTE | 2017-10-23 11:28 | PN_ITS ---
Subjective: No new complaints. Vitals/I&O's: Vital Signs Temp Pulse Resp BP Pulse Ox 37.2 C 76 18 105/74 98 10/23/17 07:59 10/23/17 07:59 10/23/17 07:59 10/23/17 07:59 10/23/17 07:59 Oxygen Delivery Method Room Air Weight: 48.76 kg Body Mass Index (BMI) 19.0 Finger Stick Blood Glucose 144 Intake and Output for Last 24 Hours 10/21/17 10/22/17 10/23/17 23:59 23:59 23:59 Intake Total 900 / 900 3814 / 3814 2337 / 2337 Output Total 1100 / 1100 Balance 900 / 900 2714 / 2714 2337 / 2337 General: Alert, No apparent distress, - - Appears older than stated age. HEENT: Atraumatic, Normocephalic Neck: No Nodes, Thyroid Normal Size and Texture Lungs: Clear to auscultation, Normal air movement, No rhonchi, No wheeze Cardiovascular: Regular rate, Regular Rhythm, Normal S1, Normal S2, No murmurs Abdomen: Bowel Sounds Present, Soft, Non Tender, Non-Distended, No Hepato- splenomegaly Extremities: - - Edema of the hands bilaterally with the right being greater than the left. No tenderness to palpation. Wound on right buttocks has a wound VAC applied but surrounding tissue is not erythematous. Psych/Mental Status: Appropriate, Flat Affect Microbiology Past 72 Hours 10/21/17 Unknown Tissue - Hip Gram Stain - Final 10/21/17 Unknown Tissue - Hip Wound Culture - Preliminary No growth-Final to follow Laboratory Results 10/22/17 08:50: HIV 1&2 Antibody Non-Reactive 10/22/17 08:50: Hepatitis A IgM Ab Pending, Hep Bs Antigen Pending, Hep B Core IgM Ab Pending, Hepatitis C Ab (EIA) Pending, HCV RNA Quant (PCR) Pending Current Medications Acetaminophen (Tylenol) 650 mg PO Q6H PRN PRN PRN Reason: Fever, headache, pain Last Admin: 10/22/17 17:04 Dose: 650 mg Doxycycline Monohydrate (Doxycycline) 100 mg PO BID [facility] Last Admin: 10/23/17 08:04 Dose: 100 mg Enoxaparin Sodium (Lovenox) 40 mg SC DAILY@0600 [facility] Last Admin: 10/23/17 06:00 Dose: 40 mg Hydralazine HCl (Apresoline Iv) 10 mg IV Q4H PRN PRN PRN Reason: SBP > 160 Sodium Chloride () 250 mls @ 15 mls/hr IV .[id number] PRN PRN Reason: SALINE FLUSH Last Admin: 10/21/17 21:38 Dose: 15 mls/hr Sodium Chloride () 1,000 mls @ 125 mls/hr IV .Q8H SYBIL Last Admin: 10/23/17 08:07 Dose: 125 mls/hr Cefazolin Sodium () 1 gm in 50 mls @ 100 mls/hr IV Q8 SBYIL Last Admin: 10/23/17 05:59 Dose: 100 mls/hr Magnesium Hydroxide (Milk Of Magnesia) 30 ml PO DAILY PRN PRN PRN Reason: Constipation Morphine Sulfate () 1 - 2 mg IV Q4H PRN PRN PRN Reason: PAIN Nutritional Formula (Lactose Free) (Ensure Clear) 120 ml PO 4X/DAY [facility] Last Admin: 10/23/17 08:05 Dose: Not Given Ondansetron HCl (Zofran) 4 mg IV Q6H PRN PRN PRN Reason: NAUSEA/VOMITING Oxycodone HCl (Oxyir) 5 - 10 mg PO Q4H PRN PRN PRN Reason: SEVERE PAIN (6-10/10) Last Admin: 10/23/17 06:00 Dose: 10 mg Sodium Chloride () 5 - 30 ml IV UD PRN PRN Reason: SALINE FLUSH Last Admin: 10/21/17 22:14 Dose: 10 ml Sodium Chloride () 10 - 20 ml IV UD PRN PRN Reason: Midline Flush Zolpidem Tartrate (Ambien (Generic)) 5 mg PO QHS PRN PRN PRN Reason: INSOMNIA Medical Necessity - Tobacco Use Smoking Status: Current every day smoker Tobacco Use: Cigarettes Assessment/Plan 1. 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 * Culture growing out MSSA, gram-negative madeline and group A strep * ID following. * vanc discontinued. * On ceftezole and and doxycycline 2. protein malnutrition * Prealbumin 14.9 * Consult nutrition * Start supplements after surgery to augment her nutritional status to help with healing of her wound. 3. Hand swelling * Patient is asymptomatic with this * May be related with her poor nutritional status. Advised patient to keep her hands elevated above her heart to see if that would help with the swelling. 4. DVT prophylaxis with Lovenox Code Visit Inpatient E&M: 00627 Subs Hosp L2
[2017-10-24] VITALS (10 sets, daily range): BP systolic 108–126; BP diastolic 68–80; PULSE 54–85; RESP 14–18; TEMP 36.8–37; O2SAT 96–99
[2017-10-24] MEDS: 0.9% Normal Saline 1,000 ML 125 ML IV (02:07)
[2017-10-24 03:06] LABS: HCV Quant. RNA PCR 35800 IU/mL (.); HEPATITIS B SURFACE AG Negative (Negative); Hepatitis A IgM Antibody Negative (Negative); Hepatitis B Core AB IgM Negative (Negative)
[2017-10-24] MEDS: Cefazolin 1 GM/50 ML BAG IV ×3 (05:12→21:50)
[2017-10-24] MEDS: Enoxaparin 40 MG/0.4 ML Syringe SC (05:12)
[2017-10-24 08:50] LABS: HCV log 10 4.554 (.)
[2017-10-24 08:53] LABS: Hep C Antibodies >11.0 s/co ratio (0.0-0.9)
[2017-10-24] MEDS: Doxycycline 100 MG CAPSULE PO ×2 (09:25→21:50)
--- NOTE | 2017-10-24 10:57 | PCM.PN.HOSP ---
Patient Problems: Active and Suspected Problems (Last Updated 10/20/17 @ 22:52 by Tylor Keller MD) Infected ulcer of skin (Acute) Vitals/I&O's: Vital Signs Temp Pulse Resp BP Pulse Ox 37.0 C 77 14 118/73 96 10/24/17 09:20 10/24/17 09:20 10/24/17 09:20 10/24/17 09:20 10/24/17 09:20 Oxygen Delivery Method Room Air Weight: 48.76 kg Body Mass Index (BMI) 19.0 Finger Stick Blood Glucose 144 Intake and Output for Last 24 Hours 10/22/17 10/23/17 10/24/17 23:59 23:59 23:59 Intake Total 3814 / 3814 4757 / 4757 2024 Output Total 1100 / 1100 Balance 2714 / 2714 4757 / 4757 2024 General: Alert, No apparent distress, - - appears much older than stated age. HEENT: Atraumatic, Normocephalic Neck: No Nodes, Thyroid Normal Size and Texture Lungs: Clear to auscultation, Normal air movement, No rhonchi, No wheeze Cardiovascular: Regular rate, Regular Rhythm, Normal S1, Normal S2, No murmurs Abdomen: Bowel Sounds Present, Soft, Non Tender, Non-Distended, No Hepato-splenomegaly Extremities: No Calf Tenderness, Edema - decreased edema of hands bilaterally. Skin: - - right hip wound with wound vac in place. no surrouding erythema Psych/Mental Status: Normal Affect, Appropriate Microbiology Past 72 Hours 10/21/17 Unknown Tissue - Hip Gram Stain - Final 10/21/17 Unknown Tissue - Hip Wound Culture - Preliminary Gram positive organism 10/21/17 Unknown Tissue - Hip Anaerobic Culture - Preliminary Checking for anaerobes, further studies to follow. Laboratory Results 10/22/17 08:50: Hepatitis A IgM Ab Negative, Hep Bs Antigen Negative, Hep B Core IgM Ab Negative, Hepatitis C Ab (EIA) >11.0 H, HCV RNA Quant (PCR) 91617, HCV RNA (PCR) log10 4.554, Hepatitis C RNA Comment Comment Current Medications Acetaminophen (Tylenol) 650 mg PO Q6H PRN PRN PRN Reason: Fever, headache, pain Last Admin: 10/22/17 17:04 Dose: 650 mg Doxycycline Monohydrate (Doxycycline) 100 mg PO BID [facility] Last Admin: 10/24/17 09:25 Dose: 100 mg Enoxaparin Sodium (Lovenox) 40 mg SC DAILY@0600 [facility] Last Admin: 10/24/17 05:12 Dose: 40 mg Hydralazine HCl (Apresoline Iv) 10 mg IV Q4H PRN PRN PRN Reason: SBP > 160 Cefazolin Sodium () 1 gm in 50 mls @ 100 mls/hr IV Q8 [facility] Last Admin: 10/24/17 05:12 Dose: 100 mls/hr Magnesium Hydroxide (Milk Of Magnesia) 30 ml PO DAILY PRN PRN PRN Reason: Constipation Morphine Sulfate () 1 - 2 mg IV Q4H PRN PRN PRN Reason: PAIN Nutritional Formula (Lactose Free) (Ensure Clear) 120 ml PO TIDCM [facility] Last Admin: 10/24/17 09:27 Dose: 120 ml Ondansetron HCl (Zofran) 4 mg IV Q6H PRN PRN PRN Reason: NAUSEA/VOMITING Oxycodone HCl (Oxyir) 5 - 10 mg PO Q4H PRN PRN PRN Reason: SEVERE PAIN (6-10/10) Last Admin: 10/23/17 20:25 Dose: 10 mg Sodium Chloride () 5 - 30 ml IV UD PRN PRN Reason: SALINE FLUSH Last Admin: 10/21/17 22:14 Dose: 10 ml Sodium Chloride () 10 - 20 ml IV UD PRN PRN Reason: Midline Flush Zolpidem Tartrate (Ambien (Generic)) 5 mg PO QHS PRN PRN PRN Reason: INSOMNIA Medical Necessity - Tobacco Use Smoking Status: Current every day smoker Tobacco Use: Cigarettes Assessment/Plan All Active Problems (Last Updated 10/20/17 @ 22:52 by Tylor Keller MD) Infected ulcer of skin (Acute) 1. 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 Culture growing out MSSA, gram-negative madeline and group A strep ID following. vanc discontinued. On ceftezole and and doxycycline Wound vac to be changed 3x/day 2. protein malnutrition Prealbumin 14.9 Consult nutrition start Ensure clear 3. Hand swelling Patient is asymptomatic with this May be related with her poor nutritional status. Advised patient to keep her hands elevated above her heart to see if that would help with the swelling. 4. DVT prophylaxis with Lovenox 5. Disposition: home likely 10/25, after further ID recs and establishing home care. Code Visit Inpatient E&M: 71934 Subs Hosp L2
--- NOTE | 2017-10-24 11:00 | PN_ITS ---
Patient Problems: Active and Suspected Problems (Last Updated 10/20/17 @ 22:52 by Tylor Keller MD) Infected ulcer of skin (Acute) Vitals/I&O's: Vital Signs Temp Pulse Resp BP Pulse Ox 37.0 C 77 14 118/73 96 10/24/17 09:20 10/24/17 09:20 10/24/17 09:20 10/24/17 09:20 10/24/17 09:20 Oxygen Delivery Method Room Air Weight: 48.76 kg Body Mass Index (BMI) 19.0 Finger Stick Blood Glucose 144 Intake and Output for Last 24 Hours 10/22/17 10/23/17 10/24/17 23:59 23:59 23:59 Intake Total 3814 / 3814 4757 / 4757 2024 Output Total 1100 / 1100 Balance 2714 / 2714 4757 / 4757 2024 General: Alert, No apparent distress, - - appears much older than stated age. HEENT: Atraumatic, Normocephalic Neck: No Nodes, Thyroid Normal Size and Texture Lungs: Clear to auscultation, Normal air movement, No rhonchi, No wheeze Cardiovascular: Regular rate, Regular Rhythm, Normal S1, Normal S2, No murmurs Abdomen: Bowel Sounds Present, Soft, Non Tender, Non-Distended, No Hepato- splenomegaly Extremities: No Calf Tenderness, Edema - decreased edema of hands bilaterally. Skin: - - right hip wound with wound vac in place. no surrouding erythema Psych/Mental Status: Normal Affect, Appropriate Microbiology Past 72 Hours 10/21/17 Unknown Tissue - Hip Gram Stain - Final 10/21/17 Unknown Tissue - Hip Wound Culture - Preliminary Gram positive organism 10/21/17 Unknown Tissue - Hip Anaerobic Culture - Preliminary Checking for anaerobes, further studies to follow. Laboratory Results 10/22/17 08:50: Hepatitis A IgM Ab Negative, Hep Bs Antigen Negative, Hep B Core IgM Ab Negative, Hepatitis C Ab (EIA) >11.0 H, HCV RNA Quant (PCR) [id number], HCV RNA (PCR) log10 4.554, Hepatitis C RNA Comment Comment Current Medications Acetaminophen (Tylenol) 650 mg PO Q6H PRN PRN PRN Reason: Fever, headache, pain Last Admin: 10/22/17 17:04 Dose: 650 mg Doxycycline Monohydrate (Doxycycline) 100 mg PO BID COUNTS INCLUDE 234 BEDS AT THE [facility] Last Admin: 10/24/17 09:25 Dose: 100 mg Enoxaparin Sodium (Lovenox) 40 mg SC DAILY@0600 COUNTS INCLUDE 234 BEDS AT THE [facility] Last Admin: 10/24/17 05:12 Dose: 40 mg Hydralazine HCl (Apresoline Iv) 10 mg IV Q4H PRN PRN PRN Reason: SBP > 160 Cefazolin Sodium () 1 gm in 50 mls @ 100 mls/hr IV Q8 COUNTS INCLUDE 234 BEDS AT THE [facility] Last Admin: 10/24/17 05:12 Dose: 100 mls/hr Magnesium Hydroxide (Milk Of Magnesia) 30 ml PO DAILY PRN PRN PRN Reason: Constipation Morphine Sulfate () 1 - 2 mg IV Q4H PRN PRN PRN Reason: PAIN Nutritional Formula (Lactose Free) (Ensure Clear) 120 ml PO TIDCM COUNTS INCLUDE 234 BEDS AT THE [facility] Last Admin: 10/24/17 09:27 Dose: 120 ml Ondansetron HCl (Zofran) 4 mg IV Q6H PRN PRN PRN Reason: NAUSEA/VOMITING Oxycodone HCl (Oxyir) 5 - 10 mg PO Q4H PRN PRN PRN Reason: SEVERE PAIN (6-10/10) Last Admin: 10/23/17 20:25 Dose: 10 mg Sodium Chloride () 5 - 30 ml IV UD PRN PRN Reason: SALINE FLUSH Last Admin: 10/21/17 22:14 Dose: 10 ml Sodium Chloride () 10 - 20 ml IV UD PRN PRN Reason: Midline Flush Zolpidem Tartrate (Ambien (Generic)) 5 mg PO QHS PRN PRN PRN Reason: INSOMNIA Medical Necessity - Tobacco Use Smoking Status: Current every day smoker Tobacco Use: Cigarettes Assessment/Plan All Active Problems (Last Updated 10/20/17 @ 22:52 by Tylor Keller MD) Infected ulcer of skin (Acute) 1. 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 * Culture growing out MSSA, gram-negative madeline and group A strep * ID following. * vanc discontinued. * On ceftezole and and doxycycline * Wound vac to be changed 3x/day 2. protein malnutrition * Prealbumin 14.9 * Consult nutrition * start Ensure clear 3. Hand swelling * Patient is asymptomatic with this * May be related with her poor nutritional status. Advised patient to keep her hands elevated above her heart to see if that would help with the swelling. 4. DVT prophylaxis with Lovenox 5. Disposition: home likely 10/25, after further ID recs and establishing home care. Code Visit Inpatient E&M: 03130 Subs Hosp L2
[2017-10-24] MEDS: oxyCODONE 5 MG Tablet PO (14:34)
== END 2017-10-25 15:20 | disposition home health service (06) | DRG 468 ==
LOC: ED 12:17 → MS2 13:59 → MS3 10-22 15:31
PROVIDERS: Internal Medicine Infectious Disease; Surgery; Admitting Provider Hospitalist; Emergency Provider Emergency Medicine; Family Provider Family Medicine
PROC: 0KBN0ZZ Excision of Right Hip Muscle, Open Approach (ICD-10-PCS; principal; 2017-10-21 15:10)
DX: L89.94 Pressure ulcer of unspecified site, stage 4 (principal); E46 Unspecified protein-calorie malnutrition; F17.210 Nicotine dependence, cigarettes, uncomplicated; L89.214 Pressure ulcer of right hip, stage 4; B95.61 Methicillin susceptible Staphylococcus aureus infection as the cause of diseases classified elsewhere; Z68.1 Body mass index [BMI] 19.9 or less, adult; B95.0 Streptococcus, group A, as the cause of diseases classified elsewhere; L08.9 Local infection of the skin and subcutaneous tissue, unspecified
CPT/HCPCS: 36415; 71045; 72192; 80048; 80074; 80202; 80307; 81025; 84134; 85025; 85027; 85652; 86140; 86703; 87015; 87040; 87070; 87075; 87077; 87102; 87116; 87186; 87205; 87206; 87522; 87640; 88304; 88305; 93005; 97802; 99284; J7030; J7040; J7050; J7120; A4216; J2405

== ENCOUNTER 2017-11-08 11:19 | Outpatient (RCR) | payer MEDICAID, SELFPAY ==
[2017-11-08 11:39] VITALS: BP 107/67; PULSE 99; RESP 20; TEMP 37.1; BMI 19.5
--- NOTE | 2017-11-08 21:42 | PCM.WC.PN ---
Type of Wound Date of Service: 11/08/17 Chief Complaint: Right trochanteric pressure sore, Stage IV. History of Wound: Surgery 10/21/17 - Excision right trochanteric pressure sore including muscle, Stage IV. Wound care - VAC. Wound culture - Staphylococcus aureus and Streptococcus Group A and Corynebacterium striatum. Was discharged on Doxycycline and Augmentin. Progress of Wound: Improved. - Physical Exam Vital Signs Temp Pulse Resp BP 98.7 F 99 20 H 107/67 11/08/17 11:39 11/08/17 11:39 11/08/17 11:39 11/08/17 11:39 Wound Measurements and Assessment WC - Nurse 1 - General Ulcer Measurement Start: 11/08/17 11:37 Freq: Status: Active Protocol: Activity Type Activity Date Activity User E-Sign Co-Sign Detail Recorded Client Recorded Date Recorded By Document 11/08/17 11:39 [id number] 11/08/17 11:54 CS 11/08/17 11:39 Wound Center Nurse 1 [Ulcer Assessment] right hip -Combined with other wound No -Current Size (cm) - Length 5.8 -Current Size (cm) - Width 7.5 -Current Size (cm) - Depth 2.5 -Total Square Cm 43.50 -Date of Last Picture (Recall this 11/08/17 field) -Photo Taken Yes -Epithelialization None Present -Tunneling No -Undermining/Tunneling No -Circular Undermining No -Classification - Thickness Full Thickness without Exposed Support Structure -Exudate Amt Large (67-100%) -Exudate Type Serosanguineous -Wound Margin Distinct, Outline Attached -Granulation Amt Large (67-100%) -Granulation Quality Red -Slough/Fibrin Yes -Necrosis Amt Small (1-33%) -Necrotic Tissue Type Adherent Slough -Structure Exposed None/Limited to Skin Breakdown -Texture (Shefali-wound Skin Appearance) No Abnormality Assessed -Moisture (Shefali-wound Skin Appearance No Abnormality ) Assessed -Color (Shefali-wound Skin Appearance) No Abnormality Assessed -Temperature (Shefali-wound Skin No Abnormality Appearance) (Pt Warm) -Tenderness on Palpation (Shefali-wound Yes Skin Appearance) -Ulcer Cleansing Rinsed/ Irrigated with Saline -Foul Odor after Cleansing No -Anesthetic Used 4% Lidocaine Solution [Edema Assessment] -Lower Limb Edema Present NA WC - Nurse 2 - General Ulcer CM Notes Start: 11/08/17 11:37 Freq: Status: Active Protocol: Activity Type Activity Date Activity User E-Sign Co-Sign Detail Recorded Client Recorded Date Recorded By Document 11/08/17 13:10 [id number] 11/08/17 13:11 11/08/17 13:10 Wound Center Nurse 2 [Procedure/Treatment] right hip -Time 13:10 -Correct Patient Yes -Correct Side, Site, Position Yes -Correct Procedure Yes -Procedure Performed Yes -Type of Procedure Debridement -Clinical Debridement Muscle -Post Debridement Size (cm) - Length 5.9 -Post Debridement Size (cm) - Width 7.6 -Post Debridement Size (cm) - Depth 2.5 -Total Square Cm 44.84 -Wound/Ulcer Outcome Not Healed -Ulcer Cleansing Rinsed/ Irrigated with Saline -Foul Odor after Cleansing No -Bioengineered Tissue No -Bleeding Controlled with Pressure -Treatment Response Procedure Tolerated Well [See Physician Procedure note for Specifics] Pain Scale: 0-10 Numeric [Pain] -Is Patient Pain Free? Yes Debridement Note Post-Debridement Measurements/Treatment - Nurse 2 - General Ulcer CM Notes Start: 11/08/17 11:37 Freq: Status: Active Protocol: Activity Type Activity Date Activity User E-Sign Co-Sign Detail Recorded Client Recorded Date Recorded By Document 11/08/17 13:10 [id number] 11/08/17 13:11 11/08/17 13:10 Wound Center Nurse 2 right hip -Time 13:10 -Correct Patient Yes -Correct Side, Site, Position Yes -Correct Procedure Yes -Procedure Performed Yes -Type of Procedure Debridement -Clinical Debridement Muscle -Post Debridement Size (cm) - Length 5.9 -Post Debridement Size (cm) - Width 7.6 -Post Debridement Size (cm) - Depth 2.5 -Total Square Cm 44.84 -Wound/Ulcer Outcome Not Healed -Ulcer Cleansing Rinsed/ Irrigated with Saline -Foul Odor after Cleansing No -Bioengineered Tissue No -Bleeding Controlled with Pressure -Treatment Response Procedure Tolerated Well Pain Scale: 0-10 Numeric Is Patient Pain Free? Yes Wound debrided: #1 Right trochanteric area. Laterality: Right Wound Grade/Stage: IV. Type of Debridement: Excisional debridement Anesthesia Used: 4% Lidocaine Solution Depth: Down to and including healthy tissue, in the subcutaneous layer, to muscle Percentage of wound debrided: 100 Instrument Used: 7mm curette Tissue Removed: subcutaneous tissue and muscle. Severity: Fat Layer Exposed - muscle is exposed. Amount of bleeding with debridement: Mild Bleeding Controlled with: Pressure Patient tolerated procedure well Assessment/Plan Assessment: 1. Right trochanteric pressure sore, Stage IV. 2. History of IV drug use. 3. Smoker. 4. s/p excision right trochanteric pressure sore including muscle, Stage IV. Plan: Continue NPWT device. Finishing Augmentin and Doxycycline. Encourage nutritional supplementation with protein to help the healing process. If there is a plateau in the healing process, can proceed with delayed closure with a fasciocutaneous flap or muscle flap. If a flap is done, then bedrest will be necessary for 6 weeks. Encouraged the patient to stop smoking as it may have deleterious effects on wound healing. Followup 3 weeks.
== END 2017-11-20 23:59 ==
LOC: WC 11:19
PROVIDERS: Family Provider Family Medicine; Visit Provider Surgery
DX: L89.214 Pressure ulcer of right hip, stage 4 (principal); F17.200 Nicotine dependence, unspecified, uncomplicated
CPT/HCPCS: 11043; 11046; 97605; 99213; G0463

== ENCOUNTER 2017-12-13 08:30 | Outpatient (RCR) | payer MEDICAID, SELFPAY ==
[2017-11-21 01:13] VITALS: BP 107/67; PULSE 99; RESP 20; TEMP 37.1
[2017-11-29 09:17] VITALS: BP 123/82; PULSE 113; RESP 18; TEMP 36.9
--- NOTE | 2017-11-29 23:56 | PCM.WC.PN ---
Type of Wound Date of Service: 11/29/17 Chief Complaint: Right trochanteric pressure sore, Stage IV. History of Wound: Surgery 10/21/17 - Excision right trochanteric pressure sore including muscle, Stage IV. Wound care - VAC. Wound culture - Staphylococcus aureus and Streptococcus Group A and Corynebacterium striatum. Was discharged on Doxycycline and Augmentin and has finished them. Encourage nutritional supplementation with protein to help the healing process. Progress of Wound: Improved. - Physical Exam Vital Signs Temp Pulse Resp BP 98.4 F 113 H 18 123/82 H 11/29/17 09:17 11/29/17 09:17 11/29/17 09:17 11/29/17 09:17 Wound Measurements and Assessment WC - Nurse 1 - General Ulcer Measurement Start: 11/29/17 09:17 Freq: Status: Active Protocol: Activity Type Activity Date Activity User E-Sign Co-Sign Detail Recorded Client Recorded Date Recorded By Document 11/29/17 09:17 [id number] 11/29/17 09:19 11/29/17 09:17 Wound Center Nurse 1 [Ulcer Assessment] right hip -Combined with other wound No -Current Size (cm) - Length 3.8 -Current Size (cm) - Width 3.6 -Current Size (cm) - Depth 1.5 -Total Square Cm 13.68 -Photo Taken No -Epithelialization Small 1-33% -Tunneling No -Undermining/Tunneling Yes -Undermining/Tunneling Starts (O' 10 clock) -Undermining/Tunneling Ends (O'clock) 2 -Maximum Distance (cm) 2.0 -Circular Undermining No -Classification - Thickness Full Thickness without Exposed Support Structure -Exudate Amt Medium (34-66%) -Exudate Type Serosanguineous -Wound Margin Distinct, Outline Attached -Granulation Amt Large (67-100%) -Granulation Quality Red -Slough/Fibrin Yes -Necrosis Amt Small (1-33%) -Necrotic Tissue Type Adherent Slough -Structure Exposed Fascia Fat Layer Exposed -Texture (Shefali-wound Skin Appearance) Assessed Rash -Moisture (Shefali-wound Skin Appearance No Abnormality ) -Color (Shefali-wound Skin Appearance) Erythema -Temperature (Shefali-wound Skin No Abnormality Appearance) (Pt Warm) -Tenderness on Palpation (Shefali-wound No Skin Appearance) -Ulcer Cleansing Rinsed/ Irrigated with Saline -Foul Odor after Cleansing No -Anesthetic Used 5% Lidocaine Gel [Edema Assessment] -Lower Limb Edema Present No WC - Nurse 2 - General Ulcer CM Notes Start: 11/29/17 09:17 Freq: Status: Active Protocol: Activity Type Activity Date Activity User E-Sign Co-Sign Detail Recorded Client Recorded Date Recorded By Document 11/29/17 09:51 [id number] 11/29/17 09:53 TED 11/29/17 09:51 Wound Center Nurse 2 [Procedure/Treatment] right hip -Time 09:52 -Correct Patient Yes -Correct Side, Site, Position Yes -Correct Procedure Yes -Procedure Performed Yes -Type of Procedure Debridement -Clinical Debridement Muscle -Post Debridement Size (cm) - Length 3.8 -Post Debridement Size (cm) - Width 3.8 -Post Debridement Size (cm) - Depth 1.5 -Total Square Cm 14.44 -Wound/Ulcer Outcome Not Healed -Ulcer Cleansing Rinsed/ Irrigated with Saline -Foul Odor after Cleansing No -Bioengineered Tissue No -Bleeding Controlled with Pressure -Treatment Response Procedure Tolerated Well [See Physician Procedure note for Specifics] Pain Scale: 0-10 Numeric [Pain] -Is Patient Pain Free? Yes Debridement Note Post-Debridement Measurements/Treatment WC - Nurse 2 - General Ulcer CM Notes Start: 11/29/17 09:17 Freq: Status: Active Protocol: Activity Type Activity Date Activity User E-Sign Co-Sign Detail Recorded Client Recorded Date Recorded By Document 11/29/17 09:51 [id number] 11/29/17 09:53 11/29/17 09:51 Wound Center Nurse 2 right hip -Time 09:52 -Correct Patient Yes -Correct Side, Site, Position Yes -Correct Procedure Yes -Procedure Performed Yes -Type of Procedure Debridement -Clinical Debridement Muscle -Post Debridement Size (cm) - Length 3.8 -Post Debridement Size (cm) - Width 3.8 -Post Debridement Size (cm) - Depth 1.5 -Total Square Cm 14.44 -Wound/Ulcer Outcome Not Healed -Ulcer Cleansing Rinsed/ Irrigated with Saline -Foul Odor after Cleansing No -Bioengineered Tissue No -Bleeding Controlled with Pressure -Treatment Response Procedure Tolerated Well Pain Scale: 0-10 Numeric Is Patient Pain Free? Yes Wound debrided: #1 Right trochanteric area. Laterality: Right Wound Grade/Stage: IV. Type of Debridement: Excisional debridement Anesthesia Used: 4% Lidocaine Solution Depth: Down to and including healthy tissue, in the subcutaneous layer, to muscle Percentage of wound debrided: 100 Instrument Used: 7mm curette Tissue Removed: subcutaneous tissue and muscle. Severity: Fat Layer Exposed - muscle is exposed. Amount of bleeding with debridement: Mild Bleeding Controlled with: Pressure Patient tolerated procedure well Assessment/Plan Assessment: 1. Right trochanteric pressure sore, Stage IV. 2. History of IV drug use. 3. Smoker. 4. s/p excision right trochanteric pressure sore including muscle, Stage IV. Plan: Stop the NPWT device. Will begin Silver dressing changes daily. She has finished the Augmentin and Doxycycline. Encourage nutritional supplementation with protein to help the healing process. If there is a plateau in the healing process, can proceed with delayed closure with a fasciocutaneous flap or muscle flap. If a flap is done, then bedrest will be necessary for 6 weeks. Encouraged the patient to stop smoking as it may have deleterious effects on wound healing. Followup 2 weeks. I estimate wound closure at 3 months (tentative). She states she cannot work until the ulcer has healed.
[2017-12-13 08:44] VITALS: BP 129/77; PULSE 111; RESP 16; TEMP 36.7
--- NOTE | 2017-12-13 17:50 | PCM.WC.PN ---
Type of Wound Date of Service: 12/13/17 Chief Complaint: Right trochanteric pressure sore, Stage IV. History of Wound: Surgery 10/21/17 - Excision right trochanteric pressure sore including muscle, Stage IV. Wound care - Silver. Wound culture - Staphylococcus aureus and Streptococcus Group A and Corynebacterium striatum. Was discharged on Doxycycline and Augmentin and has finished them. Encourage nutritional supplementation with protein to help the healing process. Progress of Wound: Improved. - Physical Exam Vital Signs Temp Pulse Resp BP 98.0 F 111 H 16 129/77 H 12/13/17 08:44 12/13/17 08:44 12/13/17 08:44 12/13/17 08:44 Wound Measurements and Assessment WC - Nurse 1 - General Ulcer Measurement Start: 11/29/17 09:17 Freq: Status: Active Protocol: Activity Type Activity Date Activity User E-Sign Co-Sign Detail Recorded Client Recorded Date Recorded By Document 12/13/17 08:44 [id number] 12/13/17 08:46 12/13/17 08:44 Wound Center Nurse 1 [Ulcer Assessment] right hip -Combined with other wound No -Current Size (cm) - Length 2.3 -Current Size (cm) - Width 2.5 -Current Size (cm) - Depth 2.1 -Total Square Cm 5.75 -Date of Last Picture (Recall this 12/13/17 field) -Photo Taken Yes -Epithelialization None Present -Undermining/Tunneling Yes -Undermining/Tunneling Starts (O' 10 clock) -Undermining/Tunneling Ends (O'clock) 2 -Maximum Distance (cm) 2.1 -Exudate Amt Medium (34-66%) -Exudate Type Serosanguineous -Wound Margin Distinct, Outline Attached -Granulation Amt Large (67-100%) -Granulation Quality [place] Red -Slough/Fibrin No -Necrosis Amt None Present (0 %) -Necrotic Tissue Type Adherent Slough -Structure Exposed None/Limited to Skin Breakdown -Texture (Shefali-wound Skin Appearance) Assessed Scarring -Color (Shefali-wound Skin Appearance) No Abnormality Assessed -Temperature (Shefali-wound Skin No Abnormality Appearance) (Pt Warm) -Tenderness on Palpation (Shefali-wound Yes Skin Appearance) -Ulcer Cleansing Rinsed/ Irrigated with Saline -Foul Odor after Cleansing No -Anesthetic Used 4% Lidocaine Solution [Edema Assessment] -Lower Limb Edema Present NA - Nurse 2 - General Ulcer CM Notes Start: 11/29/17 09:17 Freq: Status: Active Protocol: Activity Type Activity Date Activity User E-Sign Co-Sign Detail Recorded Client Recorded Date Recorded By Document 12/13/17 09:21 [id number] 12/13/17 09:23 12/13/17 09:21 Wound Center Nurse 2 [Procedure/Treatment] right hip -Time 09:22 -Correct Patient Yes -Correct Side, Site, Position Yes -Correct Procedure Yes -Procedure Performed Yes -Type of Procedure Debridement -Clinical Debridement Muscle -Post Debridement Size (cm) - Length 2.3 -Post Debridement Size (cm) - Width 2.6 -Post Debridement Size (cm) - Depth 1.4 -Total Square Cm 5.98 -Wound/Ulcer Outcome Not Healed -Ulcer Cleansing Rinsed/ Irrigated with Saline -Foul Odor after Cleansing No -Bioengineered Tissue No -Bleeding Controlled with Pressure -Treatment Response Procedure Tolerated Well [See Physician Procedure note for Specifics] Pain Scale: 0-10 Numeric [Pain] -Is Patient Pain Free? Yes Debridement Note Post-Debridement Measurements/Treatment - Nurse 2 - General Ulcer CM Notes Start: 11/29/17 09:17 Freq: Status: Active Protocol: Activity Type Activity Date Activity User E-Sign Co-Sign Detail Recorded Client Recorded Date Recorded By Document 11/29/17 09:51 [id number] 11/29/17 09:53 Document 12/13/17 09:21 [id number] 12/13/17 09:23 11/29/17 12/13/17 09:51 09:21 Wound Center Nurse 2 right hip -Time 09:52 09:22 -Correct Patient Yes Yes -Correct Side, Site, Position Yes Yes -Correct Procedure Yes Yes -Procedure Performed Yes Yes -Type of Procedure Debridement Debridement -Clinical Debridement Muscle Muscle -Post Debridement Size (cm) - Length 3.8 2.3 -Post Debridement Size (cm) - Width 3.8 2.6 -Post Debridement Size (cm) - Depth 1.5 1.4 -Total Square Cm 14.44 5.98 -Wound/Ulcer Outcome Not Healed Not Healed -Ulcer Cleansing Rinsed/ Rinsed/ Irrigated with Irrigated with Saline Saline -Foul Odor after Cleansing No No -Bioengineered Tissue No No -Bleeding Controlled with Pressure Pressure -Treatment Response Procedure Procedure Tolerated Well Tolerated Well Pain Scale: 0-10 Numeric Is Patient Pain Free? Yes Yes Wound debrided: #1 Right trochanteric area. Laterality: Right Wound Grade/Stage: IV. Type of Debridement: Excisional debridement Anesthesia Used: 4% Lidocaine Solution Depth: Down to and including healthy tissue, in the subcutaneous layer Percentage of wound debrided: 100 Instrument Used: 5mm curette Tissue Removed: subcutaneous tissue and muscle. Severity: Fat Layer Exposed - muscle is exposed. Amount of bleeding with debridement: Mild Bleeding Controlled with: Pressure Patient tolerated procedure well Assessment/Plan Assessment: 1. Right trochanteric pressure sore, Stage IV. 2. History of IV drug use. 3. Smoker. 4. s/p excision right trochanteric pressure sore including muscle, Stage IV. Plan: Continue Silver dressing changes daily. She has finished the Augmentin and Doxycycline. Encourage nutritional supplementation with protein to help the healing process. If there is a plateau in the healing process, can proceed with delayed closure with a fasciocutaneous flap or muscle flap. If a flap is done, then bedrest will be necessary for 6 weeks. Encouraged the patient to stop smoking as it may have deleterious effects on wound healing. Followup 4 weeks. I estimate wound closure at 3 months (tentative). She states she cannot work until the ulcer has healed.
--- NOTE | 2017-12-14 17:11 | PN.PCM_ITS ---
Type of Wound Date of Service: 12/13/17 Chief Complaint: Right trochanteric pressure sore, Stage IV. History of Wound: Surgery 10/21/17 - Excision right trochanteric pressure sore including muscle, Stage IV. Wound care - Silver. Wound culture - Staphylococcus aureus and Streptococcus Group A and Corynebacterium striatum. Was discharged on Doxycycline and Augmentin and has finished them. Encourage nutritional supplementation with protein to help the healing process. Progress of Wound: Improved. - Physical Exam Vital Signs Temp Pulse Resp BP 98.0 F 111 H 16 129/77 H 12/13/17 08:44 12/13/17 08:44 12/13/17 08:44 12/13/17 08:44 Wound Measurements and Assessment WC - Nurse 1 - General Ulcer Measurement Start: 11/29/17 09:17 Freq: Status: Active Protocol: Activity Type Activity Date Activity User E-Sign Co-Sign Detail Recorded Client Recorded Date Recorded By Document 12/13/17 08:44 [id number] 12/13/17 08:46 12/13/17 08:44 Wound Center Nurse 1 [Ulcer Assessment] right hip -Combined with other wound No -Current Size (cm) - Length 2.3 -Current Size (cm) - Width 2.5 -Current Size (cm) - Depth 2.1 -Total Square Cm 5.75 -Date of Last Picture (Recall this 12/13/17 field) -Photo Taken Yes -Epithelialization None Present -Undermining/Tunneling Yes -Undermining/Tunneling Starts (O' 10 clock) -Undermining/Tunneling Ends (O'clock) 2 -Maximum Distance (cm) 2.1 -Exudate Amt Medium (34-66%) -Exudate Type Serosanguineous -Wound Margin Distinct, Outline Attached -Granulation Amt Large (67-100%) -Granulation Quality [place] Red -Slough/Fibrin No -Necrosis Amt None Present (0 %) -Necrotic Tissue Type Adherent Slough -Structure Exposed None/Limited to Skin Breakdown -Texture (Shefali-wound Skin Appearance) Assessed Scarring -Color (Shefali-wound Skin Appearance) No Abnormality Assessed -Temperature (Shefali-wound Skin No Abnormality Appearance) (Pt Warm) -Tenderness on Palpation (Shefali-wound Yes Skin Appearance) -Ulcer Cleansing Rinsed/ Irrigated with Saline -Foul Odor after Cleansing No -Anesthetic Used 4% Lidocaine Solution [Edema Assessment] -Lower Limb Edema Present NA - Nurse 2 - General Ulcer CM Notes Start: 11/29/17 09:17 Freq: Status: Active Protocol: Activity Type Activity Date Activity User E-Sign Co-Sign Detail Recorded Client Recorded Date Recorded By Document 12/13/17 09:21 [id number] 12/13/17 09:23 12/13/17 09:21 Wound Center Nurse 2 [Procedure/Treatment] right hip -Time 09:22 -Correct Patient Yes -Correct Side, Site, Position Yes -Correct Procedure Yes -Procedure Performed Yes -Type of Procedure Debridement -Clinical Debridement Muscle -Post Debridement Size (cm) - Length 2.3 -Post Debridement Size (cm) - Width 2.6 -Post Debridement Size (cm) - Depth 1.4 -Total Square Cm 5.98 -Wound/Ulcer Outcome Not Healed -Ulcer Cleansing Rinsed/ Irrigated with Saline -Foul Odor after Cleansing No -Bioengineered Tissue No -Bleeding Controlled with Pressure -Treatment Response Procedure Tolerated Well [See Physician Procedure note for Specifics] Pain Scale: 0-10 Numeric [Pain] -Is Patient Pain Free? Yes Debridement Note Post-Debridement Measurements/Treatment - Nurse 2 - General Ulcer CM Notes Start: 11/29/17 09:17 Freq: Status: Active Protocol: Activity Type Activity Date Activity User E-Sign Co-Sign Detail Recorded Client Recorded Date Recorded By Document 11/29/17 09:51 [id number] 11/29/17 09:53 Document 12/13/17 09:21 [id number] 12/13/17 09:23 11/29/17 12/13/17 09:51 09:21 Wound Center Nurse 2 right hip -Time 09:52 09:22 -Correct Patient Yes Yes -Correct Side, Site, Position Yes Yes -Correct Procedure Yes Yes -Procedure Performed Yes Yes -Type of Procedure Debridement Debridement -Clinical Debridement Muscle Muscle -Post Debridement Size (cm) - Length 3.8 2.3 -Post Debridement Size (cm) - Width 3.8 2.6 -Post Debridement Size (cm) - Depth 1.5 1.4 -Total Square Cm 14.44 5.98 -Wound/Ulcer Outcome Not Healed Not Healed -Ulcer Cleansing Rinsed/ Rinsed/ Irrigated with Irrigated with Saline Saline -Foul Odor after Cleansing No No -Bioengineered Tissue No No -Bleeding Controlled with Pressure Pressure -Treatment Response Procedure Procedure Tolerated Well Tolerated Well Pain Scale: 0-10 Numeric Is Patient Pain Free? Yes Yes Wound debrided: #1 Right trochanteric area. Laterality: Right Wound Grade/Stage: IV. Type of Debridement: Excisional debridement Anesthesia Used: 4% Lidocaine Solution Depth: Down to and including healthy tissue, in the subcutaneous layer Percentage of wound debrided: 100 Instrument Used: 5mm curette Tissue Removed: subcutaneous tissue and muscle. Severity: Fat Layer Exposed - muscle is exposed. Amount of bleeding with debridement: Mild Bleeding Controlled with: Pressure Patient tolerated procedure well Assessment/Plan Assessment: 1. Right trochanteric pressure sore, Stage IV. 2. History of IV drug use. 3. Smoker. 4. s/p excision right trochanteric pressure sore including muscle, Stage IV. Plan: Continue Silver dressing changes daily. She has finished the Augmentin and Doxycycline. Encourage nutritional supplementation with protein to help the healing process. If there is a plateau in the healing process, can proceed with delayed closure with a fasciocutaneous flap or muscle flap. If a flap is done, then bedrest will be necessary for 6 weeks. Encouraged the patient to stop smoking as it may have deleterious effects on wound healing. Followup 4 weeks. I estimate wound closure at 3 months (tentative). She states she cannot work until the ulcer has healed.
== END 2017-12-21 23:59 ==
LOC: WC 08:30
PROVIDERS: Family Provider Family Medicine; Visit Provider Surgery
DX: L89.214 Pressure ulcer of right hip, stage 4 (principal); F17.200 Nicotine dependence, unspecified, uncomplicated
CPT/HCPCS: 11043

== ENCOUNTER 2018-01-10 15:06 | Outpatient (RCR) | payer MEDICAID, SELFPAY ==
[2017-12-22 01:08] VITALS: BP 129/77; PULSE 111; RESP 16; TEMP 36.7
[2018-01-10 14:25] VITALS: BP 130/86; PULSE 92; RESP 16; TEMP 36.6
--- NOTE | 2018-01-10 22:46 | PN.PCM_ITS ---
Type of Wound Date of Service: 01/10/18 Chief Complaint: Right trochanteric pressure sore, Stage IV. History of Wound: Surgery 10/21/17 - Excision right trochanteric pressure sore including muscle, Stage IV. Wound care - Silver. Wound culture - Staphylococcus aureus and Streptococcus Group A and Corynebacterium striatum. Was discharged on Doxycycline and Augmentin and has finished them. Encourage nutritional supplementation with protein to help the healing process. Progress of Wound: Improved. - Physical Exam Vital Signs Temp Pulse Resp BP 98 F 92 16 130/86 H 01/10/18 14:25 01/10/18 14:25 01/10/18 14:25 01/10/18 14:25 Wound Measurements and Assessment WC - Nurse 1 - General Ulcer Measurement Start: 01/10/18 14:25 Freq: Status: Active Protocol: Activity Type Activity Date Activity User E-Sign Co-Sign Detail Recorded Client Recorded Date Recorded By Document 01/10/18 14:25 [facility] [id number] 01/10/18 14:30 [facility] 01/10/18 14:25 Wound Center Nurse 1 [Ulcer Assessment] right hip -Combined with other wound No -Current Size (cm) - Length 0.5 -Current Size (cm) - Width 1.1 -Current Size (cm) - Depth 0.1 -Total Square Cm 0.55 -Date of Last Picture (Recall this 01/10/18 field) -Photo Taken Yes -Epithelialization Large 67-100% -Tunneling No -Undermining/Tunneling No -Circular Undermining No -Exudate Amt None Present (0 %) -Wound Margin Distinct, Outline Attached -Granulation Amt Large (67-100%) -Granulation Quality Pale Red -Slough/Fibrin No -Necrosis Amt None Present (0 %) -Structure Exposed None/Limited to Skin Breakdown -Texture (Shefali-wound Skin Appearance) Scarring -Moisture (Shefali-wound Skin Appearance Dry/Scaly ) -Color (Shefali-wound Skin Appearance) Assessed -Temperature (Shefali-wound Skin No Abnormality Appearance) (Pt Warm) -Tenderness on Palpation (Shefali-wound No Skin Appearance) -Ulcer Cleansing Rinsed/ Irrigated with Saline -Foul Odor after Cleansing No -Anesthetic Used 4% Lidocaine Solution WC - Nurse 2 - General Ulcer CM Notes Start: 01/10/18 14:25 Freq: Status: Active Protocol: Activity Type Activity Date Activity User E-Sign Co-Sign Detail Recorded Client Recorded Date Recorded By Document 01/10/18 15:00 [id number] 01/10/18 15:01 01/10/18 15:00 Wound Center Nurse 2 [Procedure/Treatment] -Time 15:01 -Correct Patient Yes -Correct Side, Site, Position Yes -Correct Procedure Yes -Procedure Performed Yes -Type of Procedure Debridement -Clinical Debridement Subcutaneous -Post Debridement Size (cm) - Length 0.6 -Post Debridement Size (cm) - Width 1.1 -Post Debridement Size (cm) - Depth 0.1 -Total Square Cm 0.66 -Wound/Ulcer Outcome Not Healed -Ulcer Cleansing Rinsed/ Irrigated with Saline -Foul Odor after Cleansing No -Bioengineered Tissue No -Bleeding Controlled with Pressure -Treatment Response Procedure Tolerated Well [See Physician Procedure note for Specifics] Pain Scale: 0-10 Numeric [Pain] -Is Patient Pain Free? Yes Debridement Note Post-Debridement Measurements/Treatment WC - Nurse 2 - General Ulcer CM Notes Start: 01/10/18 14:25 Freq: Status: Active Protocol: Activity Type Activity Date Activity User E-Sign Co-Sign Detail Recorded Client Recorded Date Recorded By Document 01/10/18 15:00 [id number] [id number] 01/10/18 15:01 01/10/18 15:00 Wound Center Nurse 2 right hip -Time 15:01 -Correct Patient Yes -Correct Side, Site, Position Yes -Correct Procedure Yes -Procedure Performed Yes -Type of Procedure Debridement -Clinical Debridement Subcutaneous -Post Debridement Size (cm) - Length 0.6 -Post Debridement Size (cm) - Width 1.1 -Post Debridement Size (cm) - Depth 0.1 -Total Square Cm 0.66 -Wound/Ulcer Outcome Not Healed -Ulcer Cleansing Rinsed/ Irrigated with Saline -Foul Odor after Cleansing No -Bioengineered Tissue No -Bleeding Controlled with Pressure -Treatment Response Procedure Tolerated Well Pain Scale: 0-10 Numeric Is Patient Pain Free? Yes Wound debrided: #1 Right trochanteric area. Laterality: Right Wound Grade/Stage: IV. Type of Debridement: Excisional debridement Anesthesia Used: 4% Lidocaine Solution Depth: Down to and including healthy tissue, in the subcutaneous layer Percentage of wound debrided: 100 Instrument Used: 3mm curette Tissue Removed: subcutaneous tissue. Severity: Fat Layer Exposed Amount of bleeding with debridement: Mild Bleeding Controlled with: Pressure Patient tolerated procedure well Assessment/Plan Assessment: 1. Right trochanteric pressure sore, Stage IV. 2. History of IV drug use. 3. Smoker. 4. s/p excision right trochanteric pressure sore including muscle, Stage IV. Plan: Stop the Silver dressing changes daily and begin Collagen Hydrogel dressing changes daily. She has finished the Augmentin and Doxycycline. Encourage nutritional supplementation with protein to help the healing process. Encouraged the patient to stop smoking as it may have deleterious effects on wound healing. Followup 4 weeks. I estimate wound closure at 3 months ( tentative). She states she cannot work until the ulcer has healed.
== END 2018-01-21 23:59 ==
LOC: WC 15:06
PROVIDERS: Family Provider Family Medicine; Visit Provider Surgery
DX: L89.214 Pressure ulcer of right hip, stage 4 (principal); F17.200 Nicotine dependence, unspecified, uncomplicated
CPT/HCPCS: 11042

== ENCOUNTER 2018-02-08 08:02 | Outpatient (RCR) | payer MEDICAID, SELFPAY ==
[2018-01-22 01:14] VITALS: BP 130/86; PULSE 92; RESP 16; TEMP 36.6
== END 2018-02-20 23:59 ==
LOC: WC 08:02
PROVIDERS: Family Provider Family Medicine; Visit Provider Surgery
DX: Z09 Encounter for follow-up examination after completed treatment for conditions other than malignant neoplasm (principal)

== ENCOUNTER 2019-06-25 11:01 | Emergency (ER) | payer SELFPAY ==
[2019-06-25 11:02] VITALS: BP 144/95; PULSE 97; RESP 17; TEMP 36.6; O2SAT 99; BMI 19.7
--- NOTE | 2019-06-25 11:25 | RAD_ITS ---
STUDY: X-RAY CHEST REASON FOR EXAM: Female, 43 years old. Right rib pain. Patient reports fall 2 weeks ago. C/O Right rib pain, however she fell on her left side. TECHNIQUE: PA and lateral views of the chest. COMPARISON: 10/21/17 FINDINGS: The lungs are clear and expanded. There is no demonstrated pleural abnormality. Normal size heart. Normal mediastinum and felicia. Normal visualized pulmonary arteries. Normal visualized aortic arch and descending thoracic aorta. Normal visualized thoracic spine. Normal visualized ribs, clavicles, and shoulders. There is no demonstrated abnormality of the visualized soft tissue structures of the upper abdomen. RAD/Chest PA and Lateral IMPRESSION: Normal x-ray examination of the chest. Electronically Signed: Néstor Mcgill DO at 12:19 EST Tel , Service support ,
--- NOTE | 2019-06-25 11:59 | ED.DCSUM_ITS ---
- ER Visit Summary Date of Service: 06/25/19 Chief Complaint: Right lower lateral rib cage pain History of Present Illness: The patient is a 43 F states that she fell about 2 weeks ago landing on her left side. At that time he had right rib cage pain but said she did not land on that side. Did not hit her head no LOC. No trouble breathing. Pain increases with movement. Physical Examination: Middle-aged female no acute distress vital signs stable afebrile. Pulse ox 9 9% room air no signs of toxic. H EENT exam atraumatic. C-spine nontender. Trachea midline. Lungs clear to auscultation bilaterally. Heart regular rate and rhythm no murmur. He has mild right lateral rib cage tenderness. There is no ecchymosis or bruising. No deformity. No subcu air or crepitance. Anterior chest wall nontender. Abdomen soft nontender. Pelvic girdle intact. Extremities moves all 4. No edema. Back nontender. Neurologically she is awake and alert. Test Results: Chest x-ray obtained AP lateral view shows no acute abnormality. There is no obvious rib fracture. No obvious pneumothorax. Emergency Department Course and Treatment: Exam unchanged. Treatment Plan: Ice to the area. Tylenol and/or Motrin for pain. Follow-up as needed. Disposition: Discharge Impression: Right rib cage strain and contusion This note was generated with [employer] dictation software. It may contain incorrect words, spelling, and punctuation that were not noted in review of the chart prior to signing ED Disposition - Plan for ED Patient: Referrals: Ramos Dos Santos MD [Primary Care Provider] -
--- NOTE | 2019-06-25 12:00 | ED.DEP ---
ED Disposition - Plan for ED Patient: Disposition: Home or Assisted Living Instructions: Rib Contusion Referrals: Ramos Dos Santos MD [Primary Care Provider] - 10-14 Days if not better Additional Instructions: Ice to the area. Use a pillow to support those ribs. Tylenol and/or Motrin for pain. Follow-up if not improving.
[2019-06-25 12:08] VITALS: BP 144/95; PULSE 97; RESP 18
== END 2019-06-25 12:09 | disposition home or self-care (01) ==
PROVIDERS: Emergency Provider Emergency Medicine; PCP Family Medicine; Referring Provider Family Medicine
DX: S29.012A Strain of muscle and tendon of back wall of thorax, initial encounter (principal); S20.211A Contusion of right front wall of thorax, initial encounter; W19.XXXA Unspecified fall, initial encounter; Y93.9 Activity, unspecified; Y92.9 Unspecified place or not applicable; Z72.0 Tobacco use
CPT/HCPCS: 71046; 99282

== ENCOUNTER 2022-12-02 17:24 | Emergency (ER) | payer MEDICARE, SELFPAY ==
[2022-12-02 17:25] VITALS: BP 153/110; PULSE 97; RESP 18; TEMP 36.4; O2SAT 99; BMI 17.2
--- NOTE | 2022-12-02 17:44 | EX.ED.UPPERE ---
HPI History of Present Illness Chief Complaint: Upper Extremity Injury Detail of Chief Complaint: Right hand swelling Informant: patient Narrative Narrative: Patient presents with scabbed wound to her right hand that occurred several weeks ago. She is now noticing increased swelling. 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 Patient also had compartment syndrome in her right forearm years ago and required extensive surgery leaving scar tissue. She has not noted fever. She has not had any drainage from the wounds. [facility] Medical History Intravenous drug user Physical exam, pre-employment Home Medications cephalexin 500 mg capsule 500 mg PO Q6 #40 CAPSULES 12/02/22 [Rx Last Taken Unknown] sulfamethoxazole 800 mg-trimethoprim 160 mg tablet (Bactrim DS) 1 tab PO BID #20 tabs 12/02/22 [Rx Last Taken Unknown] Allergy/AdvReac Type Severity Reaction Status Date / Time Penicillins Allergy Unknown Verified 12/02/22 17:26 aspirin AdvReac Upset Verified 12/02/22 17:26 Stomach Social History Smoking Status: Current every day smoker tobacco type: cigarettes ROS ROS ED Constitutional Constitutional ED: Denies chills or fever(s) Eyes Eyes: Denies change in vision or discharge from eye(s) ENT ENT ED: Denies discharge from eye(s) or sore throat Cardiovascular Cardiovascular: Denies chest pain Respiratory/Chest Respiratory/Chest: Denies cough or dyspnea Gastrointestinal Gastrointestinal: Denies abdominal pain, nausea or vomiting Genitourinary Genitourinary ED: Denies difficulty urinating or dysuria Musculoskeletal Musculoskeletal: Reports extremity pain; Denies back pain Integumentary Reports other Details: Right hand wound, swelling ; Denies Abrasions or rash Neurologic Neurologic: Denies headache(s) or weakness Psychiatric Psychiatric: Denies anxiety or depression Allergic/Immunologic Allergic/Immunologic ED: Denies lip swelling or urticaria EXAM Physical Exam Const Vital Signs: 12/02/22 17:25 Temperature 97.6 F L Temperature Source Temporal Pulse Rate 97 Respiratory Rate 18 Blood Pressure 153/110 H Blood Pressure Mean 124 Pulse Ox 99 Oxygen Delivery Method Room Air Positive well nourished and well developed General Appearance ED: well developed HEENT Reports moist mucous membranes Eyes PERRL and EOMs intact bilaterally Neck full ROM Chest Wall inspection of chest normal and palpation of chest normal Resp normal respiratory effort and clear to auscultation bilaterally Cardio regular rate and regular rhythm GI non-tender Palpation: soft Extremity Extremity Narrative: Scabbed wounds noted over the dorsal aspect of the right hand along the fourth and fifth metacarpals. No drainage from the wound. Slight generalized erythema. Edema noted throughout the hand. Right forearm reveals muscular atrophy with scar tissue from prior surgical wound. Full range of motion without difficulty. Neuro oriented x3 Neuro Narrative: Right facial paresthesias which patient reports is chronic for the past couple years. Patient able to raise eyebrows and has normal forehead wrinkling. Sensorium / Orientation: alert Motor Exam: strength 5/5 throughout MDM MDM MDM Narrative Medical decision making narrative: Right hand x-rays obtained to evaluate for any air in the soft tissues. Right hand x-ray per my interpretation reveals no acute bony findings and no evidence of subcutaneous air. Wound to be cleansed and dressed. Patient be started on Bactrim and Keflex. I will have her return tomorrow for an ultrasound of the right upper extremity to ensure no evidence of DVT. Patient is comfortable this plan. Discharge Plan Triage Chief Complaint: Upper Extremity Injury ED Provider: Becca Samson Dx/Rx/DC Orders Clinical Impression: Abrasion of hand, right, infected Instructions: ED Abrasion, ED Cellulitis Prescriptions: New sulfamethoxazole-trimethoprim [Bactrim DS] 800-160 mg tablet 1 tab PO BID Qty: 20 0RF cephalexin 500 mg capsule 500 mg PO Q6 Qty: 40 0RF Other Ambulatory Orders: Venous Duplex US, Unilateral (Stat) Facility: [facility] - Location: [facility] Ordered By: Dr. Becca Samson Primary Care Provider: Ramos Dos Santos Referrals: Ramos Dos Santos MD [Primary Care Provider] - 1 Week Disposition Disposition: Home, Self Care
--- NOTE | 2022-12-02 17:47 | RAD_ITS ---
INDICATION: Swelling for one week EXAMINATION/TECHNIQUE: X-RAY - RIGHT XR Hand Min 3 Views 3 VIEWS COMPARISON: None. FINDINGS: SOFT TISSUES: Diffuse swelling of the dorsum of the hand. No gas formations. No radiopaque foreign body. BONES/JOINTS: No acute fracture. On spaces anatomically aligned.. No sclerotic or destructive changes observed. RAD/Hand Min 3 Views IMPRESSION: No acute bony abnormality. Electronically Signed: Adriano Chadwick MD at 19:42 EDT ,
[2022-12-02] MEDS: Cephalexin 250 MG Capsule 500 MG PO (18:48)
[2022-12-02] MEDS: Smz/Tmp Ds Tablet 1 TABLET PO (18:48)
== END 2022-12-02 19:00 | disposition home or self-care (01) ==
PROVIDERS: Emergency Provider Emergency Medicine; PCP Family Medicine; Visit Provider Emergency Medicine
DX: S60.511A Abrasion of right hand, initial encounter (principal); F17.210 Nicotine dependence, cigarettes, uncomplicated; B99.8 Other infectious disease; X58.XXXA Exposure to other specified factors, initial encounter
CPT/HCPCS: 73130; 99282

== ENCOUNTER → 2022-12-03 | Outpatient (CLI) | payer MEDICARE, SELFPAY ==
--- NOTE | 2022-12-03 14:59 | VDUE_ITS ---
Reason For Study: swelling Right Proximal Right jugular vein is spontaneous, widely patent, phasic, with no intraluminal echogenicity noted. Right subclavian vein is spontaneous, widely patent, phasic, with no intraluminal echogenicity noted. Right Lower Arm Right radial vein is compressible. Right ulnar vein is compressible. Right Arm Right axillary vein is spontaneous, patent, phasic, competent, compressible and demonstrates augmentation. Right brachial vein is compressible. Right cephalic vein is compressible. Right basilic vein is compressible. VL/Venous Duplex US, Unilateral Interpretation Summary Deep veins of the right upper extremity are patent and compressible segmentally . There is no evidence of deep vein thrombosis. Superficial veins of the right upper extremity are patent and compressible segm entally. There is no evidence of superficial vein thrombosis. Ordering Physician: Becca Samson Performed By: Jose Yates RVT ???
== END | disposition home or self-care (01) ==
LOC: CVS 14:58
PROVIDERS: PCP Family Medicine; Referring Provider Emergency Medicine; Visit Provider Emergency Medicine
DX: R22.31 Localized swelling, mass and lump, right upper limb (principal)
CPT/HCPCS: 93971